=== PATIENT | male | born 1940 | race Caucasian/White ===

== ENCOUNTER 2017-02-24 13:31 | Inpatient (IN) ==
[2017-02-24] MEDS ORDERED: IPRATROPIUM/ALBUTEROL 3 ML AMPUL.NEB NEB ONE (13:53)
[2017-02-24] MEDS ORDERED: INSULIN REGULAR, HUMAN 1 UNIT/0.01 ML UNIT SQ ONE (14:11)
[2017-02-24 14:28] LABS: Basophils # (Auto) 0 K/mcL (0.0-0.3); Basophils % (Auto) 0.1 % (0.0-2.0); Eosinophils # (Auto) 0.2 K/mcL (0.0-0.7); Eosinophils % (Auto) 2.6 % (0.0-7.0); Granulocytes % (Auto) 84.1 % (38.0-78.0); Lymphocytes # (Auto) 0.9 K/mcL (1.5-4.8); Lymphocytes % (Auto) 9.8 % (15.5-49.0); Mean Cell Volume 99.2 fL (80.0-100.0); Mean Corpuscular Hemoglobin 32.7 pg (26.0-34.0); Monocytes # (Auto) 0.3 K/mcL (0.1-0.9); Monocytes % (Auto) 3.4 % (1.0-12.0); Platelet Count 209 K/mcL (140-440); RBC 3.96 M/mcL (4.50-5.90); Red Cell Distribution Width 17.1 % (11.5-14.5)
[2017-02-24] MEDS ORDERED: LIDOCAINE JEL 2% 1 TUBE 30GM TOPICAL ONE (14:30)
--- NOTE | 2017-02-24 14:33 | Emergency Department Note ---
SOB HPI - General Chief Complaint: Shortness of Breath/Dyspnea Stated Complaint: Shortness of breath Time Seen by Provider: 02/24/17 13:51 Source: family Mode of arrival: EMS Limitations: no limitations - History of Present Illness 69-year-old male presents with increasing shortness of breath over the last 3 weeks. Denies pedal edema. Positive chills and feels like he has had a fever but unknown. Does reside at [place]. States shortness of breath worse today. His blood sugars have also been high in all over the place he states. No cough, sore throat, ear pain, or cold symptoms. No abdominal pain. States the only pain he has are in his hands and feet which is chronic. He did 2 DuoNeb treatments prior to arrival without relief. He cannot get a breath and short of breath constantly. - Related Data Home Medications Medication Instructions Recorded Confirmed fish, borage, flaxseed oils-omega 1 cap PO TID cap 10/21/14 12/12/16 3,6,9 cb #1 400 mg-400 mg-400 mg cap magnesium oxide 400 mg tablet 400 mg PO BID tab 10/21/14 02/24/17 methotrexate sodium 2.5 mg tablet 15 mg PO QWEEK tab 10/21/14 02/24/17 triamcinolone acetonide 0.5 % 1 applic TOPICAL BID g 10/21/14 02/24/17 topical cream vitamin A-vitamin C-vit E-min 1 tab-cap PO BID tab 10/21/14 02/24/17 tablet diabetic syringes 1/2" 04/07/16 09/17/16 aspirin 81 mg tablet,delayed 81 mg PO QDAY 09/17/16 02/24/17 release Magnesium Hydroxide [Milk of 400 mg PO PRN PRN 02/24/17 02/24/17 Magnesia] Warfarin [Coumadin] 7.5 mg PO QDAY 02/24/17 02/24/17 Previous Rx's Medication Instructions Recorded gabapentin 400 mg capsule 1,200 mg PO TID #270 cap 01/11/15 Compression Socks #2 each 08/19/15 blood-glucose meter See Dose Instructions .ROUTE 10/18/15 .MEDSUPPLY #1 each TENS unit #1 each 11/05/15 linaclotide 290 mcg capsule 290 mcg PO BID #60 cap 11/05/15 phenazopyridine 200 mg tablet 200 mg PO TID PRN 30 Days #90 tab 11/05/15 allopurinol 300 mg tablet 300 mg PO QDAY #30 tab 02/18/16 digoxin 125 mcg tablet 125 mcg PO QDAY #30 tab 02/18/16 fenofibrate 160 mg tablet 160 mg PO QDAY #30 tab 02/18/16 finasteride 5 mg tablet 5 mg PO QDAY #30 tab 02/18/16 citalopram 20 mg tablet 20 mg PO QDAY #30 tab 02/24/16 tamsulosin 0.4 mg capsule 0.4 mg PO QDAY #30 cap 02/24/16 atorvastatin 10 mg tablet 10 mg PO QDAY #30 tab 03/02/16 blood sugar diagnostic strips See Dose Instructions .ROUTE 03/26/16 .MEDSUPPLY #100 each insulin glargine 100 unit/mL 52 unit SUB-Q BID 30 Days #31.2 ml 04/08/16 subcutaneous solution insulin lispro 100 unit/mL 20 unit SUB-Q .COMPLEX #10 ml 04/08/16 subcutaneous solution furosemide 40 mg tablet 40 mg PO .COMPLEX #60 tab 05/18/16 cholecalciferol (vitamin D3) 5,000 5,000 unit PO QDAY #100 cap 06/15/16 unit capsule omeprazole 20 mg capsule,delayed 20 mg PO QDAY #30 cap 06/26/16 release fluticasone 50 mcg/actuation 2 inh INHALATION .COMPLEX #16 each 08/28/16 blister powder for inhalation exenatide ER 2 mg/0.65 mL 2 mg SUB-Q Q7D #4 each 09/07/16 subcutaneous pen injector diltiazem ER 60 mg 60 mg PO QDAY #90 cap 09/18/16 capsule,extended release 12 hr nystatin 100,000 unit/gram topical 1 applic TOPICAL BID #60 each 10/14/16 powder alendronate 70 mg tablet 70 mg PO QWEEK #4 tab 10/26/16 fluticasone 50 mcg/actuation nasal See Label Instructions INTRANASAL 11/23/16 spray,suspension BID #16 g oxycodone 5 mg tablet 5 mg PO Q4H PRN #30 tab 02/15/17 Allergies Allergy/AdvReac Type Severity Reaction Status Date / Time Penicillins Allergy Intermediate Difficulty Verified 11/16/16 15:00 Breathing niacin Allergy Mild Unknown Verified 11/16/16 15:00 iodine Allergy Verified 02/24/17 15:00 Review of Systems All systems ED: reviewed and negative except as stated. Past Medical History - Past Medical History Medical history: Reports: arthritis, asthma, atrial fibrillation, CHF, coronary artery disease, CVA, DVT, diabetes, GERD, hyperlipidemia, hypertension, osteoporosis, pulmonary embolus, renal disease, other (Frequent urinary tract infections, atrial fibrillation, sepsis, community-acquired pneumonia, stage III kidney disease, CVA, sleep apnea, urethral stricture, cervical disc disorder. Phimosis, CHF, CAD, enlarged prostate, type 2 diabetes, vitamin D deficiency, anemia, gastroenteritis, neuropathy, cardiac stent, DVT, staph infection, skin cancer, pulmonary embolism, osteoarthritis, neuropathy, obesity , hypertension, gout, GERD, CKD, asthma, depression) Surgical history ED: Reports: angioplasty/stent, cholecystectomy, herniorrhaphy , prostatectomy, tonsillectomy, other (Adenoidectomy, prostate surgery, cholecystectomy, cystoscopy. Tonsillectomy, umbilical hernia repair, cardiac stent, left great toe surgery, right ankle surgery) - Social History smoking status: Former smoker Alcohol use: Reports: None Drug use: Reports: none Physical Exam - General Limitations: no limitations General appearance: alert, anxious (Mildly), in distress (Mild distress with a respiratory rate of 32 on arrival) - Head Head exam: atraumatic, normocephalic, normal inspection - Eye Eye exam: Present: normal appearance. Absent: conjunctival injection - ENT ENT exam: normal exam, normal oropharynx, mucous membranes moist, TM's normal bilaterally, normal external ear exam - Neck Neck exam: Present: normal inspection, trachea midline. Absent: tenderness, lymphadenopathy - Chest Chest inspection: Present: normal inspection, symmetric chest wall rise - Respiratory Respiratory exam: Present: respiratory distress (Tachypnea), other (Are diminished in bases bilaterally otherwise clear throughout). Absent: wheezes, accessory muscle use - Cardiovascular Cardiovascular exam: Present: normal heart sounds (Atrial fibrillation on the monitor) - Abdominal Exam Abdominal exam: Present: distention (Large distended abdomen), normal bowel sounds. Absent: tenderness, guarding, rebound, mass - Extremities Exam Extremities exam: Present: normal inspection, normal capillary refill. Absent: pedal edema - Neurological Exam Neurological exam: Present: alert, oriented X3 - Psychiatric Psychiatric exam: Present: normal affect, normal mood - Skin Skin exam: Present: warm, dry, intact, normal color. Absent: rash, cyanosis, diaphoresis, erythema Course Course Narrative: Dr. Cortez, hospitalist, agrees to admit and assume care. Vital Signs Temperature 99.3 F H 02/24/17 13:31 Pulse Rate 96 H 02/24/17 13:31 Respiratory Rate 33 H 02/24/17 13:31 Blood Pressure 120/58 02/24/17 13:31 Pulse Oximetry (%) 96 02/24/17 13:31 Temperature 99.3 F H 02/24/17 13:31 Pulse Rate 93 H 02/24/17 15:55 Respiratory Rate 27 H 02/24/17 15:55 Blood Pressure 107/84 02/24/17 15:46 Pulse Oximetry (%) 97 02/24/17 15:55 Shortness of Breath/Dyspnea - Lab Data Result diagrams: 02/24/17 14:04 02/24/17 14:04 Lab Results 02/24/17 02/24/17 02/24/17 Range/Units 14:04 14:04 14:04 WBC 9.5 (4.5-11.0) K/mcL RBC 3.96 L (4.50-5.90) M/mcL Hgb 13.0 L (13.5-16.5) g/dL Hct 39.3 L (41.0-55.0) % MCV 99.2 (80.0-100.0) fL MCH 32.7 (26.0-34.0) pg MCHC 33.0 (31.0-36.0) g/dL RDW 17.1 H (11.5-14.5) % Plt Count 209 (140-440) K/mcL MPV 9.8 (7.4-10.4) fL Gran % 84.1 H (38.0-78.0) % Lymph % (Auto) 9.8 L (15.5-49.0) % Cottle % (Auto) 3.4 (1.0-12.0) % Eos % (Auto) 2.6 (0.0-7.0) % Baso % (Auto) 0.1 (0.0-2.0) % Gran # 8.0 (1.8-8.0) K/mcL Lymph # (Auto) 0.9 L (1.5-4.8) K/mcL Cottle # (Auto) 0.3 (0.1-0.9) K/mcL Eos # (Auto) 0.2 (0.0-0.7) K/mcL Baso # (Auto) 0 (0.0-0.3) K/mcL D-Dimer 0.31 (0.00-0.40) ug/ml VBG Lactic Acid (0.5-2.2) mmol/L Sodium 135 (133-145) mmol/L Potassium 5.3 H (3.3-5.1) mmol/L Chloride 97 (96-108) mmol/L Carbon Dioxide 28 (22-30) mmol/L Anion Gap 10.0 (8-16) BUN 37 H (8-23) mg/dl Creatinine 1.5 H (0.7-1.2) mg/dl GFR Calculation 44 Glucose 479 H* (70-105) mg/dL Calcium 9.1 (8.6-10.4) mg/dl Total Bilirubin 0.3 (0.0-1.0) mg/dL AST 23 (0-37) U/l ALT 17 (0-40) U/l Alkaline Phosphatase 33 L (39-117) U/L Troponin T (0-0.03) ng/ml NT-Pro-B Natriuret Pep 1393.0 H (0-450) pg/ml Total Protein 6.7 (5.9-8.4) gm/dL Albumin 3.6 (3.2-5.2) gm/dL Globulin 3.1 (2.2-3.7) gm/dL Albumin/Globulin Ratio 1.2 (1.0-2.3) Urine Color Urine Appearance Urine pH (5.0-9.0) Ur Specific [place] (1.000-1.035) Urine Protein (NEG) mg/dL Urine Glucose (UA) (NEG) mg/dL Urine Ketones (NEG) mg/dL Urine Occult Blood (<0.03) mg/dL Urine Nitrate (NEG) Urine Bilirubin (NEG) mg/dL Urine Urobilinogen (NEG) mg/dL Ur Leukocyte Esterase (NEG) /uL Urine RBC (0-1) /hpf Urine WBC (0-4) /hpf Ur Squamous Epith Cells (0-4) /hpf Urine Bacteria (0) /hpf Hyaline Casts (0-2) /lpf Ur Culture Indicated? 02/24/17 02/24/17 02/24/17 Range/Units 14:04 14:48 15:11 WBC (4.5-11.0) K/mcL RBC (4.50-5.90) M/mcL Hgb (13.5-16.5) g/dL Hct (41.0-55.0) % MCV (80.0-100.0) fL MCH (26.0-34.0) pg MCHC (31.0-36.0) g/dL RDW (11.5-14.5) % Plt Count (140-440) K/mcL MPV (7.4-10.4) fL Gran % (38.0-78.0) % Lymph % (Auto) (15.5-49.0) % Cottle % (Auto) (1.0-12.0) % Eos % (Auto) (0.0-7.0) % Baso % (Auto) (0.0-2.0) % Gran # (1.8-8.0) K/mcL Lymph # (Auto) (1.5-4.8) K/mcL Cottle # (Auto) (0.1-0.9) K/mcL Eos # (Auto) (0.0-0.7) K/mcL Baso # (Auto) (0.0-0.3) K/mcL D-Dimer (0.00-0.40) ug/ml VBG Lactic Acid 2.6 H (0.5-2.2) mmol/L Sodium (133-145) mmol/L Potassium (3.3-5.1) mmol/L Chloride (96-108) mmol/L Carbon Dioxide (22-30) mmol/L Anion Gap (8-16) BUN (8-23) mg/dl Creatinine (0.7-1.2) mg/dl GFR Calculation Glucose (70-105) mg/dL Calcium (8.6-10.4) mg/dl Total Bilirubin (0.0-1.0) mg/dL AST (0-37) U/l ALT (0-40) U/l Alkaline Phosphatase (39-117) U/L Troponin T 0.06 H* (0-0.03) ng/ml NT-Pro-B Natriuret Pep (0-450) pg/ml Total Protein (5.9-8.4) gm/dL Albumin (3.2-5.2) gm/dL Globulin (2.2-3.7) gm/dL Albumin/Globulin Ratio (1.0-2.3) Urine Color Yellow Urine Appearance Clear Urine pH 5.0 (5.0-9.0) Ur Specific [place] 1.013 (1.000-1.035) Urine Protein Neg (NEG) mg/dL Urine Glucose (UA) >=500 A (NEG) mg/dL Urine Ketones Neg (NEG) mg/dL Urine Occult Blood Neg (<0.03) mg/dL Urine Nitrate Neg (NEG) Urine Bilirubin Neg (NEG) mg/dL Urine Urobilinogen Neg (NEG) mg/dL Ur Leukocyte Esterase 25 A (NEG) /uL Urine RBC 1 (0-1) /hpf Urine WBC 3 (0-4) /hpf Ur Squamous Epith Cells 1 (0-4) /hpf Urine Bacteria 0 (0) /hpf Hyaline Casts 8 H (0-2) /lpf Ur Culture Indicated? No Disposition Pt seen by NIGHT ASSISTANT/PA only: Yes Clinical Impression: CHF (congestive heart failure), Dyspnea, Hyperglycemia, unspecified Disposition: Xfer As Inpt ([facility]) Instructions: Heart Failure (ED) Referrals: Curly Middleton MD [Primary Care Provider] -
--- NOTE | 2017-02-24 14:48 | XRay Report ---
CLINICAL INFORMATION: Dyspnea COMPARISON: 12/13/2016 FINDINGS: The heart is mildly enlarged but accentuated by suboptimal inspiration result, portable technique and rightward rotation. Mediastinum is normal. Upper lobe pulmonary vessels are slightly distended. Minor bibasilar atelectasis noted. No definite effusion IMPRESSION: Mild CHF. Interpreted and Authenticated by: David Alfred 02/24/17
[2017-02-24 14:53] LABS: ALT/SGPT 17 U/l (0-40); Albumin 3.6 gm/dL (3.2-5.2); Albumin/Globulin Ratio 1.2 (1.0-2.3); Alkaline Phosphatase 33 U/L (39-117); Blood Urea Nitrogen 37 mg/dl (8-23)
[2017-02-24] MEDS ORDERED: FUROSEMIDE 20 MG/2 ML VIAL IV ONE (14:53)
[2017-02-24 15:38] LABS: Appearance,Urine CLEAR; Bacteria,Urine 0 /hpf (0); Bilirubin,Urine NEG (NEG); Color,Urine YELLOW; Glucose,Urine (UA) >=500 mg/dL (NEG); Leukocyte Esterase,Urine 25 /uL (NEG); Nitrate,Urine NEG (NEG); Protein,Urine NEG (NEG); Specific Gravity,Urine 1.013 (1.000-1.035); Urine Blood NEG mg/dL (<0.03); Urine Hyaline Cast 8 /lpf (0-2); Urine RBC 1 /hpf (0-1); Urine Squamous Epithelial Cell 1 /hpf (0-4); Urine WBC 3 /hpf (0-4); Urobilinogen,Urine NEG (NEG)
[2017-02-24] MEDS ORDERED: ACETAMINOPHEN 325 MG TABLET PO PRN (17:14)
[2017-02-24] MEDS ORDERED: ONDANSETRON 4 MG/2 ML VIAL IV PRN (17:14)
[2017-02-24] MEDS ORDERED: ALBUTEROL SULFATE 2.5 MG/3 ML NEBULIZER NEB PRN (17:14)
--- NOTE | 2017-02-24 17:20 | Internal Med History&Physical ---
Medical - H&P: HPI Patient information: Note initiated : 02/24/17 at 5:15 pm Service Date, if different from initiated Date: [] Patient: Jay Allen a 77 y/o M admitted on 02/24/17 for Shortness of breath. Chief Complaint: Short of breath History of present illness: Mr. Allen is a 77-year-old male with multiple medical problems including sometimes difficult to control type 2 diabetes mellitus, recent chronic hypoxic respiratory failure on oxygen, rate controlled atrial fibrillation, diastolic congestive heart failure, coronary artery disease and chronic kidney disease who presents with dyspnea and hypoxia. History is obtained in speaking with the patient who provide some limited history, his who is at bedside, as well as reviewing old records, as summarized below. Patient states he has been short of breath for "a while". The emergency department received a history of dyspnea for the last 3 weeks. His states that he's been short of breath and on oxygen constantly since he had pneumonia back in December. He was seen in this emergency department, diagnosed with sepsis from pneumonia and transferred to [facility]. He was apparently readmitted at [facility] since then. He's been on oxygen at [facility], where he's currently living since he's been hospitalized. He is brought to the emergency department today because he was having progressive dyspnea as well as oxygen saturations in the 70's recorded at [facility] while he was on his usual oxygen. Associated with his dyspnea, the patient's noted worsening lower extremity edema. His weight was 270, and spent 250-260 in the past. The cough with some foamy sputum, also some greenish and yellow sputum. He is occasionally had mid chest pain, it happens occasionally, not particularly associated with any exertion, last for a day or 2. It is not a pressure or squeezing pain it is a "hurt". It is not stabbing either. It does not radiate. He had some of this yesterday. He is having none now. He's had no dyspnea with deep respirations. He does have a history of pulmonary embolism, but is maintained on warfarin for his atrial fibrillation. His lower extremity swelling is not unilateral. Patient denies any headache, vision changes. He does have burning in his hands and feet which is unchanged in due to neuropathy. He has urinary hesitancy which is not new. He also has constipation. Apparently he used to be on fairly high doses of opioids for chronic pain, was weaned off. In the emergency department evaluation revealed elevated BNP at 1395, mild congestive heart failure on radiograph. On my exam he has bilateral rales plus lower extremity edema consistent with CHF. His been admitted for treatment of acute on chronic diastolic congestive heart failure. Review of systems: Except as noted in history of present illness, the remainder of a 10 point review of systems is negative Medical - H&P: H Medical history: Type 2 diabetes mellitus Diabetic neuropathy Coronary artery disease with CT, status post stenting in 2001 in 2002 Chronic kidney disease Hypertension Chronic hypoxic respiratory failure Atrial fibrillation Chronic diastolic congestive heart failure Asthma/COPD Hyperlipidemia History of pulmonary embolism, treated and [facility] Ira several years ago Gastroesophageal reflux disease Hyperlipidemia History of left lower lobe pneumonia December 2016 BPH with urinary obstruction Depression Gout Morbid obesity, BMI 41 Obstructive sleep apnea Surgical history: Status post cholecystectomy Status post herniorrhaphy Status post tonsillectomy Status post TURP Social history: Has been a resident of [facility] since his hospitalizations for pneumonia. Is a former smoker, smoked for about 5 years in total, quitting several years ago. No longer drinks alcohol. Medical - H&P: Meds Home Medications Medication Instructions Recorded Confirmed Type magnesium oxide 400 mg tablet 400 mg PO BID tab 10/21/14 02/24/17 History methotrexate sodium 2.5 mg tablet 15 mg PO MO@0900 tab 10/21/14 02/24/17 History triamcinolone acetonide 0.5 % 1 applic TOPICAL BID g 10/21/14 02/24/17 History topical cream vitamin A-vitamin C-vit E-min 1 tab-cap PO BID tab 10/21/14 02/24/17 History tablet allopurinol 300 mg tablet 300 mg PO QDAY #30 tab 02/18/16 02/24/17 Rx fenofibrate 160 mg tablet 160 mg PO QDAY #30 tab 02/18/16 02/24/17 Rx cholecalciferol (vitamin D3) 5,000 5,000 unit PO QDAY #100 cap 06/15/16 Rx unit capsule aspirin 81 mg tablet,delayed 81 mg PO QDAY 09/17/16 02/24/17 History release nystatin 100,000 unit/gram topical 1 applic TOPICAL BID #60 each 10/14/16 Rx powder Alendronate Sodium [Fosamax] 70 mg PO SA@0700 02/24/17 02/24/17 History Atorvastatin [Lipitor] 10 mg PO HS 02/24/17 02/24/17 History Budesonide [Pulmicort] 0.5 mg NEB Q12 02/24/17 02/24/17 History Citalopram Hydrobromide [Celexa] 40 mg PO DAILY 02/24/17 02/24/17 History Digoxin [Digitek] 125 mcg PO DAILY@1400 02/24/17 02/24/17 History Diltiazem [Cardizem] 60 mg PO BID 02/24/17 02/24/17 History Furosemide [Lasix] 40 mg PO BIDD 02/24/17 02/24/17 History Gabapentin [Neurontin] 400 mg PO TID 02/24/17 02/24/17 History Hydrocortisone [Anusol-Hc] 30 gm TP BIDP PRN 02/24/17 02/24/17 History Ipratropium/Albuterol [Duoneb] 3 ml NEB Q4HWA 02/24/17 02/24/17 History Iron Ps Cmplx/Vit B12/FA 1 each PO DAILY 02/24/17 02/24/17 History [Poly-Iron 150 Forte Capsule] Linaclotide [Linzess] 290 mcg PO ACB 02/24/17 02/24/17 History Losartan [Cozaar] 25 mg PO DAILY 02/24/17 02/24/17 History Melatonin 3 - 6 mg PO HSP PRN 02/24/17 02/24/17 History Omeprazole [Prilosec] 20 mg PO ACB 02/24/17 02/24/17 History Polyethylene Glycol 3350 [Miralax] 17 gm PO BID 02/24/17 02/24/17 History Tamsulosin HCl [Flomax] 0.4 mg PO HS 02/24/17 02/24/17 History Warfarin [Coumadin] 5 mg PO SUTUTHFRSA@1400 02/24/17 02/24/17 History Warfarin [Coumadin] 10 mg PO MOWE@1400 02/24/17 02/24/17 History oxyCODONE HCL [Roxicodone] 5 mg PO Q4HP PRN 02/24/17 02/24/17 History Allergies Allergy/AdvReac Type Severity Reaction Status Date / Time Penicillins Allergy Intermediate Difficulty Verified 11/16/16 15:00 Breathing niacin Allergy Mild Unknown Verified 11/16/16 15:00 iodine Allergy Verified 02/24/17 15:00 Medical - H&P: Exam - Constitutional Vitals: Temp Pulse Resp BP Pulse Ox 99.3 F H 92 H 24 H 117/63 97 02/24/17 13:31 02/24/17 16:33 02/24/17 16:01 02/24/17 16:32 02/24/17 16:33 General appearance: mild distress, morbidly obese - Head Head exam: Present: atraumatic - Eye Eye exam: Present: PERRL. Absent: conjunctival injection, scleral icterus - Neck Neck exam: Absent: lymphadenopathy, meningismus, thyromegaly - Respiratory Respiratory exam: Present: rales (LLL>RLL). Absent: accessory muscle use, stridor, wheezes - Cardiovascular Cardiovascular exam: Present: irregular rhythm, systolic murmur. Absent: gallop - Expanded Cardiovascular Exam Peripheral pulses: 1+: dorsalis pedis (L), dorsalis pedis (R), 2+: carotid (L), carotid (R) - GI/Abdominal GI/Abdominal exam: Present: normal bowel sounds, soft. Absent: organomegaly ( though exam limited by obesity), rebound, tenderness - Extremities Exam Extremities exam: Present: pedal edema (1+ bilateral). Absent: calf tenderness , joint swelling - Neurological Exam Neurological exam: Present: alert (but answers short and vauge), CN II-XII intact, oriented X3 - Skin Skin exam: Present: dry, warm Medical - H&P: Reslt - Labs CBC & Chem 7: 02/24/17 14:04 02/24/17 14:04 Labs: Short CBC 02/24/17 Range/Units 14:04 WBC 9.5 (4.5-11.0) K/mcL Hgb 13.0 L (13.5-16.5) g/dL Hct 39.3 L (41.0-55.0) % Plt Count 209 (140-440) K/mcL BMP 02/24/17 14:04 Sodium 135 Potassium 5.3 H Chloride 97 Carbon Dioxide 28 BUN 37 H Creatinine 1.5 H Glucose 479 H* Calcium 9.1 Cardiac Enzymes 02/24/17 Range/Units 14:04 Troponin T 0.06 H* (0-0.03) ng/ml Liver Function 02/24/17 Range/Units 14:04 Total Bilirubin 0.3 (0.0-1.0) mg/dL AST 23 (0-37) U/l ALT 17 (0-40) U/l Alkaline Phosphatase 33 L (39-117) U/L Albumin 3.6 (3.2-5.2) gm/dL Urine 02/24/17 Range/Units 15:11 Urine Color Yellow Urine Appearance Clear Urine pH 5.0 (5.0-9.0) Ur Specific [place] 1.013 (1.000-1.035) Urine Protein Neg (NEG) mg/dL Urine Glucose (UA) >=500 A (NEG) mg/dL - EKG Data -: EKG Reviewed by Myself - Imaging and Cardiology Chest x-ray Status: image reviewed by me Additional comments: Impression: Mild CHF Medical - H&P: A/P (1) Acute on chronic diastolic congestive heart failure Current visit: Yes Status: Acute (2) Type 2 diabetes mellitus with diabetic neuropathy Current visit: Yes Status: Chronic (3) CKD (chronic kidney disease), stage III Current visit: Yes Status: Chronic (4) CAD (coronary artery disease) Current visit: Yes Status: Chronic (5) A-fib Problem details: With leaky valve Current visit: Yes Status: Chronic - Narrative A/P Narrative: 77-year-old male presenting with several days to weeks of worsening dyspnea, decreasing oxygen saturations, lower extremity edema, found to have evidence of heart failure. Acute on chronic diastolic congestive heart failure. Last echocardiogram in July showed concentric LVH which was mild with grossly normal systolic performance and an EF of approximately 55% though it was a difficult study. Also had some aortic stenosis, thought to be mild. Unclear the etiology of his decompensation though it's been slow and progressive, and he may have become refractory to diuretics as fluid retention worsened. Troponin is 0.06, suspect that's more related to heart failure decompensation and less suspicious of acute coronary syndrome as a cause of his decompensation. Plan: -Inpatient admission to telemetry -Diuresis with twice-daily furosemide -Follow intake, output, daily weights. -Low sodium diet -Recheck echocardiogram Abnormal troponin. Level is 0.06 at presentation. No old readings in the record. Could be acute, secondary to decompensated heart failure and wall stress. Also has renal insufficiency, may have artificial elevation due to that. No current chest pain. He does have some inferior T-wave changes, but no ST elevations. He does have remote history of coronary disease with stenting in 2001 and 2002. Plan: Trend troponins, continue his home antianginal regimen. If troponins increase, we will need to pursue transfer for cardiac evaluation. Atrial fibrillation. Chronic and rate controlled. On warfarin for stroke prophylaxis. Plan: Continue with current regimen, including warfarin. Type 2 diabetes mellitus. Hyperglycemia presentation, likely from decompensation of his medical condition. Suspect he may have underlying urinary infection as well. Plan: Continue with his home Lantus, diabetic diet, sliding scale insulin, adjust as needed. Chronic hypoxic respiratory failure. On oxygen chronically at home, his thinks his 2 L/m. Plan: Continue supplemental oxygen as needed, titrate to maintain saturations greater than 92%. Abnormal urine analysis. Leukocyte esterase is positive, 3 white cells but no bacteria. Given his low-grade fever, we'll begin antibiotic therapy and follow- up culture. Plan: Ceftriaxone, follow-up urine culture Chronic kidney disease. Creatinine was 1.11.2 over the summer. More recently has been in the 1.31.4 range. Only slightly elevated 1.5 at presentation, could be secondary to his decompensated heart failure. Plan: Monitor renal function with diuresis. Gastroesophageal reflux disease. Plan: Continue acid suppression for that and prophylaxis CODE STATUS is full code Prophylaxis: PPI. No further DVT prophylaxis indicated as the patient is systemically anticoagulated for atrial fibrillation.
[2017-02-24] MEDS ORDERED: oxyCODONE HCL 5 MG TABLET PO PRN (18:25)
[2017-02-24] MEDS: POLYETHYLENE GLYCOL 3350 17 GM PACKET PO SCH (21:00)
[2017-02-24] MEDS: DILTIAZEM 30 MG TABLET PO SCH (21:54)
[2017-02-24] MEDS: GABAPENTIN 400 MG CAPSULE PO SCH (21:54)
[2017-02-24] MEDS: VIT A,C & E/LUTEIN/MINERALS TABLET PO SCH (21:54)
[2017-02-24] MEDS: ATORVASTATIN 20 MG TABLET PO SCH (21:54)
[2017-02-24] MEDS: MAGNESIUM OXIDE 400 MG TABLET PO SCH (21:54)
[2017-02-24] MEDS: TAMSULOSIN 0.4 MG CAPSULE PO SCH (21:54)
[2017-02-24] MEDS: INSULIN GLARGINE, HUMAN 1 UNIT/0.01 ML SQ SCH (21:55)
[2017-02-24] MEDS: INSULIN LISPRO 1 UNIT/0.01 ML UNIT SQ SCH (21:55)
[2017-02-24] MEDS: NYSTATIN POWDER BOTTLE 15GM TOPICAL SCH (21:56)
[2017-02-24] MEDS: IPRATROPIUM/ALBUTEROL 3 ML AMPUL.NEB NEB SCH (21:58)
[2017-02-24] MEDS: BUDESONIDE 0.5 MG/2 ML AMPUL.NEB NEB SCH (21:58)
[2017-02-24] MEDS: 0.9 % SODIUM CHLORIDE 10 ML SYRINGE IV SCH (21:59)
[2017-02-25 05:20] LABS: ALT/SGPT 17 U/l (0-40); Albumin 3.5 gm/dL (3.2-5.2); Albumin/Globulin Ratio 1.2 (1.0-2.3); Alkaline Phosphatase 29 U/L (39-117); Bilirubin,Direct < 0.2 mg/dL (0.0-0.3); Blood Urea Nitrogen 31 mg/dl (8-23); Gamma Glutamyl Transpeptidase 24 U/L (8-61); HDL Cholesterol 21 mg/dl (>40); LDL Cholesterol,Calculated 87 mg/dl (SEE CHART); Magnesium 2.1 mg/dL (1.6-2.5); Uric Acid 5.9 mg/dL (2.5-8.0)
[2017-02-25] MEDS: 0.9 % SODIUM CHLORIDE 10 ML SYRINGE IV SCH ×4 (05:30→21:18)
[2017-02-25] MEDS: IPRATROPIUM/ALBUTEROL 3 ML AMPUL.NEB NEB SCH ×5 (05:30→22:18)
[2017-02-25] MEDS: OMEPRAZOLE 20 MG CAPSULE PO SCH (08:00)
[2017-02-25] MEDS: INSULIN LISPRO 1 UNIT/0.01 ML UNIT SQ SCH ×4 (08:01→21:17)
[2017-02-25] MEDS: BUDESONIDE 0.5 MG/2 ML AMPUL.NEB NEB SCH ×2 (08:06→20:18)
[2017-02-25] MEDS: FUROSEMIDE 40 MG/4 ML VIAL IV SCH ×2 (08:55→16:05)
[2017-02-25] MEDS: ASPIRIN 81 MG TAB.CHEW PO SCH (09:13)
[2017-02-25] MEDS: LOSARTAN 25 MG TABLET PO SCH (09:13)
[2017-02-25] MEDS: DILTIAZEM 30 MG TABLET PO SCH ×2 (09:14→21:17)
[2017-02-25] MEDS: CITALOPRAM 20 MG TABLET PO SCH (09:14)
[2017-02-25] MEDS: VIT A,C & E/LUTEIN/MINERALS TABLET PO SCH ×2 (09:15→21:18)
[2017-02-25] MEDS: MAGNESIUM OXIDE 400 MG TABLET PO SCH ×2 (09:15→21:18)
[2017-02-25] MEDS: GABAPENTIN 400 MG CAPSULE PO SCH ×3 (09:15→21:17)
[2017-02-25] MEDS: ALLOPURINOL 300 MG TABLET PO SCH (09:19)
[2017-02-25] MEDS: NYSTATIN POWDER BOTTLE 15GM TOPICAL SCH ×2 (09:19→21:18)
[2017-02-25] MEDS: FENOFIBRATE 43 MG CAPSULE PO SCH (09:20)
[2017-02-25] MEDS: POLYETHYLENE GLYCOL 3350 17 GM PACKET PO SCH ×2 (09:20→21:18)
--- NOTE | 2017-02-25 10:47 | Internal Med Progress Note ---
Medical - PN: Subj Patient information: Note initiated : 02/25/17 at 10:41 am Service Date, if different from initiated Date: [] Patient: Jay Allen 77 y/o M admitted on 02/24/17 for Shortness of breath. Chief Complaint: Follow-up CHF Interval history: February 25: Feels better this morning. More lucid. Vaguely remembers talking to me in the ER yesterday. Dyspnea is improved, less edema, lung exam improved. Doesn't recall our discussion of this being congestive heart failure that we had yesterday. No substernal chest pain. Does have some left shoulder pain that started this morning, worse with movement of his left arm (tends to lay on right side with left arm extended and dangling over edge of bed). Having loose stools, on significant amounts of bowel care which is being compared back. - Constitutional Vitals: Vital Signs Temp Pulse Resp BP Pulse Ox 98.0 F 88 18 121/40 96 02/25/17 07:13 02/25/17 09:02 02/25/17 09:02 02/25/17 07:13 02/25/17 09:02 Period Temp Pulse Resp BP Sys/Jimenez Pulse Ox Last 24 Hr 98.0 F-99.3 F 74-174 18-33 55-174/27-101 93-100 Intake and Output 02/24/17 02/25/17 02/25/17 21:59 05:59 13:59 Intake Total 400 / 400 Output Total 1850 / 1850 2175 / 2175 Balance -1850 / -1850 -2175 / -2175 400 / 400 Weight 265 lb Intake & Output: Intake & Output 02/24/17 02/25/17 02/25/17 21:59 05:59 13:59 Intake Total 400 / 400 Output Total 1850 / 1850 2175 / 2175 Balance -1850 / -1850 -2175 / -2175 400 / 400 Weight 265 lb Intake: Oral 400 / 400 Output: Urine Catheter Amount 925 / 925 2175 / 2175 Void Amount 925 / 925 Uretheral (Moore) 925 / 925 Other: Meal Breakfast Percent of Meal Consumed 100% Feeding Ability Assist with Tray Set Up # Bowel Movements 4 1 General appearance: morbidly obese, no acute distress - Respiratory Respiratory exam: Present: normal respiratory exam, CTAB. Absent: rales, respiratory distress, wheezes - Cardiovascular Cardiovascular exam: Present: irregular rhythm, systolic murmur - Expanded Cardiovascular Exam Type of murmur: Present: systolic Location: Present: LUSB Intensity: 1/6 - GI/Abdominal GI/Abdominal exam: Present: normal bowel sounds, soft (obese). Absent: rebound , rigid, tenderness - Extremities Exam Extremities exam: Present: pedal edema (1+), neurovascular intact. Absent: calf tenderness - Neurological Exam Neurological exam: Present: alert, oriented X3 Additional comments: generalized weakness - Psychiatric Psychiatric exam: Present: normal affect, normal mood Medical - PN: Obj Da - Labs CBC & Chem 7: 02/24/17 14:04 02/25/17 03:50 Labs: Abnormal Lab Results 02/25/17 02/25/17 02/25/17 03:50 03:50 03:50 RBC Hgb Hct RDW Gran % Lymph % (Auto) Lymph # (Auto) PT 44.2 H INR 4.4 H VBG Lactic Acid Potassium Carbon Dioxide 33 H BUN 31 H Creatinine 1.3 H Glucose 154 H Alkaline Phosphatase 29 L Troponin T 0.09 H* NT-Pro-B Natriuret Pep Triglycerides 198 H HDL Cholesterol 21 L Urine Glucose (UA) Ur Leukocyte Esterase Hyaline Casts 02/24/17 02/24/17 02/24/17 23:03 17:30 15:11 RBC Hgb Hct RDW Gran % Lymph % (Auto) Lymph # (Auto) PT INR VBG Lactic Acid Potassium Carbon Dioxide BUN Creatinine Glucose Alkaline Phosphatase Troponin T 0.07 H* 0.06 H* NT-Pro-B Natriuret Pep Triglycerides HDL Cholesterol Urine Glucose (UA) >=500 A Ur Leukocyte Esterase 25 A Hyaline Casts 8 H 02/24/17 02/24/17 02/24/17 14:48 14:04 14:04 RBC Hgb Hct RDW Gran % Lymph % (Auto) Lymph # (Auto) PT 47.2 H INR 4.8 H VBG Lactic Acid 2.6 H Potassium Carbon Dioxide BUN Creatinine Glucose Alkaline Phosphatase Troponin T 0.06 H* NT-Pro-B Natriuret Pep Triglycerides HDL Cholesterol Urine Glucose (UA) Ur Leukocyte Esterase Hyaline Casts 02/24/17 02/24/17 14:04 14:04 RBC 3.96 L Hgb 13.0 L Hct 39.3 L RDW 17.1 H Gran % 84.1 H Lymph % (Auto) 9.8 L Lymph # (Auto) 0.9 L PT INR VBG Lactic Acid Potassium 5.3 H Carbon Dioxide BUN 37 H Creatinine 1.5 H Glucose 479 H* Alkaline Phosphatase 33 L Troponin T NT-Pro-B Natriuret Pep 1393.0 H Triglycerides HDL Cholesterol Urine Glucose (UA) Ur Leukocyte Esterase Hyaline Casts Meds: Medications Acetaminophen (Tylenol) 650 mg PO Q6HP PRN PRN Reason: PAIN/FEVER > 101 Albuterol Sulfate (Ventolin) 2.5 mg NEB Q4HP PRN PRN Reason: Shortness Of Breath Or Wheezing Albuterol/Ipratropium (Duoneb) 3 ml NEB Q4HWA [facility] Last Admin: 02/25/17 08:06 Dose: 3 ml Allopurinol (Zylopriim) 300 mg PO QDAY [facility] Last Admin: 02/25/17 09:19 Dose: 300 mg Aspirin (Aspirin) 81 mg PO DAILY [facility] Last Admin: 02/25/17 09:13 Dose: 81 mg Atorvastatin Calcium (Lipitor) 10 mg PO HS [facility] Last Admin: 02/24/17 21:54 Dose: 10 mg Budesonide (Pulmicort) 0.5 mg NEB Q12 [facility] Last Admin: 02/25/17 08:06 Dose: 0.5 mg Citalopram Hydrobromide (Celexa) 40 mg PO DAILY [facility] Last Admin: 02/25/17 09:14 Dose: 40 mg Diagnostic Test (Pha) (Accu-Chek) 1 each FS ACHS [facility] Last Admin: 02/25/17 08:00 Dose: 1 each Digoxin (Lanoxin) 125 mcg PO DAILY@1400 [facility] Diltiazem HCl (Cardizem) 60 mg PO BID [facility] Last Admin: 02/25/17 09:14 Dose: 60 mg Fenofibrate (Antara) 129 mg PO DAILY [facility] Last Admin: 02/25/17 09:20 Dose: 129 mg Furosemide (Lasix) 40 mg IV BIDD [facility] Last Admin: 02/25/17 08:55 Dose: 40 mg Gabapentin (Neurontin) 400 mg PO TID [facility] Last Admin: 02/25/17 09:15 Dose: 400 mg Insulin Glargine (Lantus) 30 unit SQ HS [facility] Last Admin: 02/24/17 21:55 Dose: 30 unit Insulin Human Lispro (Humalog) 0 unit SQ ACHS [facility] PRN Reason: Protocol Last Admin: 02/25/17 08:01 Dose: 6 unit Losartan Potassium (Cozaar) 25 mg PO DAILY [facility] Last Admin: 02/25/17 09:13 Dose: 25 mg Magnesium Oxide (Magnesium Oxide) 400 mg PO BID [facility] Last Admin: 02/25/17 09:15 Dose: 400 mg Multivitamins/Minerals (Ocuvite) 1 tab PO BID [facility] Last Admin: 02/25/17 09:15 Dose: 1 tab Melatonin 3 Mg 3 - 6 mg PO HSP PRN PRN Reason: Insomnia Nystatin (Nystatin) 1 dose TOPICAL BID [facility] Last Admin: 02/25/17 09:19 Dose: 1 dose Omeprazole (Prilosec) 20 mg PO ACB [facility] Last Admin: 02/25/17 08:00 Dose: 20 mg Ondansetron HCl (Zofran) 4 mg IV Q4HP PRN PRN Reason: Nausea And Vomiting Oxycodone HCl (Roxicodone) 5 mg PO Q4HP PRN PRN Reason: Pain Polyethylene Glycol (Miralax) 17 gm PO BID [facility] Last Admin: 02/25/17 09:20 Dose: Not Given Sodium Chloride (Saline Flush) 10 ml IV Q8 [facility] Last Admin: 02/25/17 07:30 Dose: 10 ml Tamsulosin HCl (Flomax) 0.4 mg PO [facility] Last Admin: 02/24/17 21:54 Dose: 0.4 mg Medical - PN: A/P - Time Spent With Patient Total time spent is greater than 50% in coordination of care (as documented) at patient's floor/unit and/or counseling patient: (1) Acute on chronic diastolic congestive heart failure Status: Acute Current Visit: Yes (2) Type 2 diabetes mellitus with diabetic neuropathy Status: Chronic Current Visit: Yes (3) CKD (chronic kidney disease), stage III Status: Chronic Current Visit: Yes (4) CAD (coronary artery disease) Status: Chronic Current Visit: Yes (5) A-fib Problem details: With leaky valve Status: Chronic Current Visit: Yes - Narrative A/P Narrative: 77-year-old male presenting with several days to weeks of worsening dyspnea, decreasing oxygen saturations, lower extremity edema, found to have evidence of heart failure. Acute on chronic diastolic congestive heart failure. He had an echocardiogram done at [facility] in December, by report shows an EF of 65%, that's been faxed over. Last echo report available in our system shows mild concentric LVH. Also had some aortic stenosis, thought to be mild. Suspect etiology may be multifactorial, diet at his skilled facility, progressive weight gain and ultimate refractoriness of diuretics. Plan: Continue with diuresis, on twice a day furosemide, follow intake, output , daily weights; continue low sodium diet, follow-up echo report from 12/2016 Abnormal troponin. Level is 0.06 at presentation, repeat 0.06 and 0.09. No substernal chest symptoms. No acute injury pattern on EKG. Is complaining of some left shoulder pain, that appears mechanicals worsens with movement of the shoulder. May be secondary to wall stress from acute decompensated heart failure combined with renal insufficiency. EKG without injury, some inferior TW changes from digitalis effect. Plan: Continue to trend troponins, continue his home antianginal regimen. Atrial fibrillation. Chronic and rate controlled. On warfarin for stroke prophylaxis. INR high at presentation/coagulopathy from warfarin (4.8) Plan: Continue with current regimen, digoxin, diltiazem and warfarin, with pharmacy to dose, follow INR. Type 2 diabetes mellitus. Hyperglycemia at presentation, likely from decompensation of his medical condition. Suspect he may have underlying urinary infection as well. Glucoses improved. Plan: Continue with his home Lantus, diabetic diet, sliding scale insulin, adjust as needed. Chronic hypoxic respiratory failure. On oxygen chronically at home, his thinks his 2 L/m. Plan: Continue supplemental oxygen as needed, titrate to maintain saturations greater than 92%. Abnormal urine analysis. Leukocyte esterase is positive, 3 white cells but no bacteria. Given his low-grade fever, we'll begin antibiotic therapy and follow- up culture. Plan: Ceftriaxone, follow-up urine culture Chronic kidney disease. Creatinine was 1.1-1.2 over the summer. More recently has been in the 1.3-1.4 range. Only slightly elevated 1.5 at presentation, could be secondary to his decompensated heart failure. Plan: Monitor renal function with diuresis. Gastroesophageal reflux disease. Plan: Continue acid suppression for that and prophylaxis Disposition: The patient had been at [facility] after hospitalization for sepsis and pneumonia in December at [facility]. Likely will return to [facility]. PT consult. CODE STATUS is full code Prophylaxis: PPI. No further DVT prophylaxis indicated as the patient is systemically anticoagulated for atrial fibrillation. Medical - PN: Qual - VTE Deep Vein Thrombosis/Pulmonary Embolism Present on Admission: No
[2017-02-25] MEDS: DIGOXIN 125 MCG TABLET PO SCH (13:36)
[2017-02-25] MEDS: TAMSULOSIN 0.4 MG CAPSULE PO SCH (21:17)
[2017-02-25] MEDS: INSULIN GLARGINE, HUMAN 1 UNIT/0.01 ML SQ SCH (21:17)
[2017-02-25] MEDS: ATORVASTATIN 20 MG TABLET PO SCH (21:18)
[2017-02-26] MEDS: IPRATROPIUM/ALBUTEROL 3 ML AMPUL.NEB NEB SCH ×5 (05:18→21:29)
[2017-02-26 05:20] LABS: Basophils # (Auto) 0 K/mcL (0.0-0.3); Basophils % (Auto) 0.2 % (0.0-2.0); Eosinophils # (Auto) 0.4 K/mcL (0.0-0.7); Eosinophils % (Auto) 3.7 % (0.0-7.0); Granulocytes % (Auto) 81.4 % (38.0-78.0); Lymphocytes # (Auto) 1.3 K/mcL (1.5-4.8); Lymphocytes % (Auto) 10.9 % (15.5-49.0); Mean Cell Volume 99.4 fL (80.0-100.0); Mean Corpuscular HGB Conc 32.7 g/dL (31.0-36.0); Mean Corpuscular Hemoglobin 32.5 pg (26.0-34.0); Monocytes # (Auto) 0.4 K/mcL (0.1-0.9); Monocytes % (Auto) 3.8 % (1.0-12.0); Platelet Count 214 K/mcL (140-440); RBC 3.99 M/mcL (4.50-5.90); Red Cell Distribution Width 16.9 % (11.5-14.5)
[2017-02-26] MEDS: 0.9 % SODIUM CHLORIDE 10 ML SYRINGE IV SCH ×6 (05:25→21:28)
[2017-02-26 05:46] LABS: ALT/SGPT 19 U/l (0-40); Albumin 3.5 gm/dL (3.2-5.2); Albumin/Globulin Ratio 1.1 (1.0-2.3); Alkaline Phosphatase 33 U/L (39-117); Bilirubin,Direct < 0.2 mg/dL (0.0-0.3); Blood Urea Nitrogen 33 mg/dl (8-23); Gamma Glutamyl Transpeptidase 25 U/L (8-61); Uric Acid 5.8 mg/dL (2.5-8.0)
[2017-02-26] MEDS: FUROSEMIDE 40 MG/4 ML VIAL IV SCH (07:46)
[2017-02-26] MEDS: OMEPRAZOLE 20 MG CAPSULE PO SCH (07:46)
[2017-02-26] MEDS: INSULIN LISPRO 1 UNIT/0.01 ML UNIT SQ SCH ×5 (08:03→21:39)
--- NOTE | 2017-02-26 09:06 | XRay Report ---
CLINICAL INFORMATION: CHF COMPARISON: 02/24/2017 FINDINGS: The heart returned to normal in size. Mediastinum is unremarkable. Pulmonary vessels have returned to normal in caliber. There is no edema. Minor bibasilar atelectasis noted IMPRESSION: Resolution in CHF since yesterday Interpreted and Authenticated by: David Alfred 02/26/17
[2017-02-26] MEDS: MAGNESIUM OXIDE 400 MG TABLET PO SCH ×2 (09:14→21:27)
[2017-02-26] MEDS: ALLOPURINOL 300 MG TABLET PO SCH (09:14)
[2017-02-26] MEDS: LOSARTAN 25 MG TABLET PO SCH (09:14)
[2017-02-26] MEDS: VIT A,C & E/LUTEIN/MINERALS TABLET PO SCH ×2 (09:14→21:27)
[2017-02-26] MEDS: CITALOPRAM 20 MG TABLET PO SCH (09:14)
[2017-02-26] MEDS: GABAPENTIN 400 MG CAPSULE PO SCH ×3 (09:14→21:27)
[2017-02-26] MEDS: DILTIAZEM 30 MG TABLET PO SCH ×2 (09:15→21:27)
[2017-02-26] MEDS: ASPIRIN 81 MG TAB.CHEW PO SCH (09:15)
[2017-02-26] MEDS: FENOFIBRATE 43 MG CAPSULE PO SCH (09:19)
[2017-02-26] MEDS: POLYETHYLENE GLYCOL 3350 17 GM PACKET PO SCH ×2 (09:25→21:28)
[2017-02-26] MEDS: NYSTATIN POWDER BOTTLE 15GM TOPICAL SCH ×2 (09:26→21:28)
[2017-02-26] MEDS ORDERED: VANCOMYCIN PER PHARMACY IV SCH (09:49)
[2017-02-26] MEDS ORDERED: SODIUM CHLORIDE 0.9% IV SCH (10:00)
[2017-02-26] MEDS ORDERED: CEFTRIAXONE IV SCH (10:00)
[2017-02-26] MEDS ORDERED: FLU VACC QS2017-18 36MOS UP/PF 60 MCG/0.5 ML SYRINGE IM ONE (10:00)
[2017-02-26] MEDS: BUDESONIDE 0.5 MG/2 ML AMPUL.NEB NEB SCH ×2 (11:01→21:26)
--- NOTE | 2017-02-26 11:11 | Internal Med Progress Note ---
Medical - PN: Subj Patient information: Note initiated : 02/26/17 at 11:04 am Service Date, if different from initiated Date: [] Patient: Jay Allen 77 y/o M admitted on 02/24/17 for Shortness of Breath /CHF, Dyspnea, Hyperglycemia. Chief Complaint: [] Interval history: February 25: Feels better this morning. More lucid. Vaguely remembers talking to me in the ER yesterday. Dyspnea is improved, less edema, lung exam improved. Doesn't recall our discussion of this being congestive heart failure that we had yesterday. No substernal chest pain. Does have some left shoulder pain that started this morning, worse with movement of his left arm (tends to lay on right side with left arm extended and dangling over edge of bed). Having loose stools, on significant amounts of bowel care which is being compared back.'] February 26: Patient seen examined, no acute ovenright events, trop stable, and trending down at 0.06, pt denies any Chest pains The patient still has some shortness of breath and chest tightness when he takes a deep breath, but overall feels better HE is negative I/O balance 5455 since admission. There is slight uptake on his wbc count, his creat also bumped up somewhat today. CXR shows resolution of chf. He is at baseline oxygen needs repeat lactic acid is normal He was supposed to be no rocephin as per notes,b ut I did not see any order for same. I started the patient on rocephin and he I believe got one dose, the urine cx however came back as enterococcus therefore rocephin held and vancomycin started. The patient notes he is here for pna, which is not true, on reading on the notes from Dr Cortez, it seems pt is struggling with memory as he had forgotten his conversation with Dr Cortez as well. Pertinent ROS: Denies headache, dizziness Denies chest pain, palpitations Denies cough or shortness of breath Denies abdominal pain, nausea or vomiting. - Constitutional Vitals: Vital Signs Temp Pulse Resp BP Pulse Ox 98.9 F 77 16 136/40 96 02/26/17 08:01 02/25/17 22:18 02/26/17 08:01 02/26/17 08:01 02/26/17 08:01 Period Temp Pulse Resp BP Sys/Jimenez Pulse Ox Last 24 Hr 98.0 F-99.3 F 74-84 16-20 101-136/40-57 93-96 Intake and Output 02/25/17 02/26/17 02/26/17 21:59 05:59 13:59 Intake Total 450 / 450 650 / 650 Output Total 1200 / 1200 1450 / 1450 Balance -750 / -750 -1450 / -1450 650 / 650 Weight 259 lb 12.8 oz Intake & Output: Intake & Output 02/25/17 02/26/17 02/26/17 21:59 05:59 13:59 Intake Total 450 / 450 650 / 650 Output Total 1200 / 1200 1450 / 1450 Balance -750 / -750 -1450 / -1450 650 / 650 Weight 259 lb 12.8 oz Intake: IV 50 / 50 Rocephin 2 gm In Sodium 50 / 50 Chloride 0.9% 50 ml @ 100 mls/ hr IV Q24H [facility] Rx#:[id number] Oral 450 / 450 600 / 600 Output: Urine Catheter Amount 1200 / 1200 1450 / 1450 Other: Meal Dinner snack Breakfast Percent of Meal Consumed 100% 100% 100% Feeding Ability Assist with Tray Set Up Independent Assist with Tray Set Up # Bowel Movements 1 Exam: Constitutional; Afebrile, cooperative, alert, not in distress. Eyes- No icterus, , No periorbital swelling Ears- Ext ear normal, hearing normal to conversation. Neck- Midline trachea, supple Respiratory system: Air Entry equal on both sides, No crackles or wheezing, no rhonchi. 2L oxygen CVS- Rate rhythm regular, S1,S2 heard, no gallop, no rub. Abdomen- Soft nontender abdomen, no organomegaly, no tenderness, no guarding or rigidity, [employer]- AOOx2, moving all extremities, no gross focal deficit noted. Medical - PN: Obj Da - Labs CBC & Chem 7: 02/26/17 03:40 02/26/17 03:40 Labs: Abnormal Lab Results 02/26/17 02/26/17 02/26/17 03:40 03:40 03:40 WBC 11.5 H RBC 3.99 L Hgb 13.0 L Hct 39.7 L RDW 16.9 H Gran % 81.4 H Lymph % (Auto) 10.9 L Gran # 9.3 H Lymph # (Auto) 1.3 L PT 28.2 H INR 2.5 H VBG Lactic Acid Potassium Chloride 95 L Carbon Dioxide BUN 33 H Creatinine 1.6 H Glucose 309 H Alkaline Phosphatase 33 L Troponin T NT-Pro-B Natriuret Pep Triglycerides 231 H HDL Cholesterol Urine Glucose (UA) Ur Leukocyte Esterase Hyaline Casts 02/25/17 02/25/17 02/25/17 17:45 12:00 03:50 WBC RBC Hgb Hct RDW Gran % Lymph % (Auto) Gran # Lymph # (Auto) PT INR VBG Lactic Acid Potassium Chloride Carbon Dioxide BUN Creatinine Glucose Alkaline Phosphatase Troponin T 0.06 H* 0.09 H* 0.09 H* NT-Pro-B Natriuret Pep Triglycerides HDL Cholesterol Urine Glucose (UA) Ur Leukocyte Esterase Hyaline Casts 02/25/17 02/25/17 02/25/17 03:50 03:50 00:00 WBC RBC Hgb Hct RDW Gran % Lymph % (Auto) Gran # Lymph # (Auto) PT 44.2 H INR 4.4 H VBG Lactic Acid Potassium Chloride Carbon Dioxide 33 H BUN 31 H Creatinine 1.3 H Glucose 154 H Alkaline Phosphatase 29 L Troponin T 0.06 H* NT-Pro-B Natriuret Pep Triglycerides 198 H HDL Cholesterol 21 L Urine Glucose (UA) Ur Leukocyte Esterase Hyaline Casts 02/24/17 02/24/17 02/24/17 23:03 17:30 15:11 WBC RBC Hgb Hct RDW Gran % Lymph % (Auto) Gran # Lymph # (Auto) PT INR VBG Lactic Acid Potassium Chloride Carbon Dioxide BUN Creatinine Glucose Alkaline Phosphatase Troponin T 0.07 H* 0.06 H* NT-Pro-B Natriuret Pep Triglycerides HDL Cholesterol Urine Glucose (UA) >=500 A Ur Leukocyte Esterase 25 A Hyaline Casts 8 H 02/24/17 02/24/17 02/24/17 14:48 14:04 14:04 WBC RBC Hgb Hct RDW Gran % Lymph % (Auto) Gran # Lymph # (Auto) PT 47.2 H INR 4.8 H VBG Lactic Acid 2.6 H Potassium Chloride Carbon Dioxide BUN Creatinine Glucose Alkaline Phosphatase Troponin T 0.06 H* NT-Pro-B Natriuret Pep Triglycerides HDL Cholesterol Urine Glucose (UA) Ur Leukocyte Esterase Hyaline Casts 02/24/17 02/24/17 14:04 14:04 WBC RBC 3.96 L Hgb 13.0 L Hct 39.3 L RDW 17.1 H Gran % 84.1 H Lymph % (Auto) 9.8 L Gran # Lymph # (Auto) 0.9 L PT INR VBG Lactic Acid Potassium 5.3 H Chloride Carbon Dioxide BUN 37 H Creatinine 1.5 H Glucose 479 H* Alkaline Phosphatase 33 L Troponin T NT-Pro-B Natriuret Pep 1393.0 H Triglycerides HDL Cholesterol Urine Glucose (UA) Ur Leukocyte Esterase Hyaline Casts Meds: Medications Acetaminophen (Tylenol) 650 mg PO Q6HP PRN PRN Reason: PAIN/FEVER > 101 Albuterol Sulfate (Ventolin) 2.5 mg NEB Q4HP PRN PRN Reason: Shortness Of Breath Or Wheezing Albuterol/Ipratropium (Duoneb) 3 ml NEB Q4HWA [facility] Last Admin: 02/26/17 11:00 Dose: Not Given Allopurinol (Zylopriim) 300 mg PO QDAY [facility] Last Admin: 02/26/17 09:14 Dose: 300 mg Aspirin (Aspirin) 81 mg PO DAILY [facility] Last Admin: 02/26/17 09:15 Dose: 81 mg Atorvastatin Calcium (Lipitor) 10 mg PO HS [facility] Last Admin: 02/25/17 21:18 Dose: 10 mg Budesonide (Pulmicort) 0.5 mg NEB Q12 [facility] Last Admin: 02/26/17 11:01 Dose: Not Given Citalopram Hydrobromide (Celexa) 40 mg PO DAILY [facility] Last Admin: 02/26/17 09:14 Dose: 40 mg Diagnostic Test (Pha) (Accu-Chek) 1 each FS ACHS [facility] Last Admin: 02/26/17 07:49 Dose: 1 each Digoxin (Lanoxin) 125 mcg PO DAILY@1400 [facility] Last Admin: 02/25/17 13:36 Dose: 125 mcg Diltiazem HCl (Cardizem) 60 mg PO BID [facility] Last Admin: 02/26/17 09:15 Dose: 60 mg Fenofibrate (Antara) 129 mg PO DAILY [facility] Last Admin: 02/26/17 09:19 Dose: 129 mg Furosemide (Lasix) 40 mg IV BIDD [facility] Last Admin: 02/26/17 07:46 Dose: 40 mg Gabapentin (Neurontin) 400 mg PO TID [facility] Last Admin: 02/26/17 09:14 Dose: 400 mg Vancomycin HCl 1,500 mg/ (Sodium Chloride) 500 mls @ 333.3 mls/hr IV Q24H [facility] Insulin Glargine (Lantus) 30 unit SQ HS [facility] Last Admin: 02/25/17 21:17 Dose: 30 unit Insulin Human Lispro (Humalog) 0 unit SQ ACHS [facility] PRN Reason: Protocol Last Admin: 02/26/17 08:03 Dose: 12 unit Losartan Potassium (Cozaar) 25 mg PO DAILY [facility] Last Admin: 02/26/17 09:14 Dose: 25 mg Magnesium Oxide (Magnesium Oxide) 400 mg PO BID [facility] Last Admin: 02/26/17 09:14 Dose: 400 mg Multivitamins/Minerals (Ocuvite) 1 tab PO BID [facility] Last Admin: 02/26/17 09:14 Dose: 1 tab Melatonin 3 Mg 3 - 6 mg PO HSP PRN PRN Reason: Insomnia Nystatin (Nystatin) 1 dose TOPICAL BID [facility] Last Admin: 02/26/17 09:26 Dose: 1 dose Omeprazole (Prilosec) 20 mg PO ACB [facility] Last Admin: 02/26/17 07:46 Dose: 20 mg Ondansetron HCl (Zofran) 4 mg IV Q4HP PRN PRN Reason: Nausea And Vomiting Oxycodone HCl (Roxicodone) 5 mg PO Q4HP PRN PRN Reason: Pain Polyethylene Glycol (Miralax) 17 gm PO BID [facility] Last Admin: 02/26/17 09:25 Dose: Not Given Sodium Chloride (Saline Flush) 10 ml IV Q8 [facility] Last Admin: 02/26/17 10:21 Dose: 10 ml Tamsulosin HCl (Flomax) 0.4 mg PO HS [facility] Last Admin: 02/25/17 21:17 Dose: 0.4 mg Vancomycin HCl (Vancomycin Per Pharmacy) 1 order IV UD [facility] Warfarin Sodium (Coumadin Per Pharmacy) 1 order PO UD [facility] Warfarin Sodium (Coumadin) 5 mg PO ONCE@1400 [facility] Stop: 02/26/17 14:01 Medical - PN: A/P - Time Spent With Patient Total time spent is greater than 50% in coordination of care (as documented) at patient's floor/unit and/or counseling patient: - Narrative A/P Narrative: 77-year-old male presenting with several days to weeks of worsening dyspnea, decreasing oxygen saturations, lower extremity edema, found to have evidence of heart failure. Acute on chronic diastolic congestive heart failure. He had an echocardiogram done at [facility] in December, by report shows an EF of 65%, but has grade 3 diastolic dysfunction, moderate to severe and pulm htn with pa pressure of 52. Continue with diuresis, change to once daily for now, was on twice a day furosemide, follow intake, output, daily weights; continue low sodium diet, Abnormal troponin. Level is 0.06 at presentation, bumped up to 0.09, back to 0.09, no chest pain, likely secondary to chf. Continue to trend troponins, continue his home antianginal regimen. Pt is anticoagulated on therapuetic inr. Atrial fibrillation. Chronic and rate controlled. On warfarin for stroke prophylaxis. INR high at presentation/coagulopathy from warfarin (4.8), is therapeutic today, resume home dose of coumadin .continue dig, (check level) cardizem Type 2 diabetes mellitus. Hyperglycemia at presentation, likely from decompensation of his medical condition. Suspect he may have underlying urinary infection as well. Glucoses improved. Continue with his home Lantus, diabetic diet, sliding scale insulin, adjust as needed. Chronic hypoxic respiratory failure. On oxygen chronically at home, his thinks his 2 L/m. he is back at 2L oxygen Continue supplemental oxygen as needed , titrate to maintain saturations greater than 92%. Abnormal urine analysis/ Enterococcus UTI. low grade fever, urine cx positive for enterococcus, sensitivity pending, start on v ancomycin for now, await sensitivities and deescalate based on same. Chronic kidney disease. Creatinine was 1.1-1.2 over the summer. More recently has been in the 1.3-1.4 range. creat 1.6 today, monitor closely. Gastroesophageal reflux disease. Continue acid suppression for that and prophylaxis Disposition: The patient had been at [facility] after hospitalization for sepsis and pneumonia in December at [facility]. Likely will return to [facility]. PT consult. CODE STATUS is full code Prophylaxis: PPI. No further DVT prophylaxis indicated as the patient is systemically anticoagulated for atrial fibrillation. Medical - PN: Qual - VTE Deep Vein Thrombosis/Pulmonary Embolism Present on Admission: No
[2017-02-26] MEDS: VANCOMYCIN 1,500 MG in 0.9 % SODIUM CHLORIDE 500 ML IV SCH (11:23)
[2017-02-26] MEDS ORDERED: WARFARIN 5 MG TABLET PO ONE (14:00)
[2017-02-26] MEDS: DIGOXIN 125 MCG TABLET PO SCH (14:04)
[2017-02-26] MEDS ORDERED: INSULIN GLARGINE, HUMAN 1 UNIT/0.01 ML SQ SCH (21:00)
[2017-02-26] MEDS: TAMSULOSIN 0.4 MG CAPSULE PO SCH (21:27)
[2017-02-26] MEDS: ATORVASTATIN 20 MG TABLET PO SCH (21:27)
[2017-02-27] MEDS: IPRATROPIUM/ALBUTEROL 3 ML AMPUL.NEB NEB SCH ×5 (05:50→22:06)
[2017-02-27] MEDS: 0.9 % SODIUM CHLORIDE 10 ML SYRINGE IV SCH ×5 (05:51→21:01)
[2017-02-27] MEDS: INSULIN LISPRO 1 UNIT/0.01 ML UNIT SQ SCH ×4 (07:40→21:00)
[2017-02-27] MEDS: OMEPRAZOLE 20 MG CAPSULE PO SCH (07:40)
[2017-02-27] MEDS: BUDESONIDE 0.5 MG/2 ML AMPUL.NEB NEB SCH ×2 (08:11→22:07)
[2017-02-27] MEDS: LOSARTAN 25 MG TABLET PO SCH (08:49)
[2017-02-27] MEDS: MAGNESIUM OXIDE 400 MG TABLET PO SCH ×2 (08:49→21:00)
[2017-02-27] MEDS: GABAPENTIN 400 MG CAPSULE PO SCH ×3 (08:49→21:01)
[2017-02-27] MEDS: DILTIAZEM 30 MG TABLET PO SCH ×2 (08:49→21:01)
[2017-02-27] MEDS: ASPIRIN 81 MG TAB.CHEW PO SCH (08:49)
[2017-02-27] MEDS: ALLOPURINOL 300 MG TABLET PO SCH (08:49)
[2017-02-27] MEDS: VIT A,C & E/LUTEIN/MINERALS TABLET PO SCH ×2 (08:50→21:00)
[2017-02-27] MEDS: FENOFIBRATE 43 MG CAPSULE PO SCH (08:51)
[2017-02-27] MEDS: CITALOPRAM 20 MG TABLET PO SCH (08:51)
[2017-02-27] MEDS: POLYETHYLENE GLYCOL 3350 17 GM PACKET PO SCH ×2 (08:52→21:01)
[2017-02-27] MEDS: NYSTATIN POWDER BOTTLE 15GM TOPICAL SCH ×2 (08:53→21:01)
[2017-02-27] MEDS ORDERED: FUROSEMIDE 40 MG/4 ML VIAL IV SCH (09:00)
[2017-02-27] MEDS: VANCOMYCIN 1,500 MG in 0.9 % SODIUM CHLORIDE 500 ML IV SCH (09:08)
[2017-02-27 09:58] LABS: ALT/SGPT 16 U/l (0-40); Albumin 3.2 gm/dL (3.2-5.2); Alkaline Phosphatase 33 U/L (39-117); Basophils # (Auto) 0 K/mcL (0.0-0.3); Basophils % (Auto) 0.2 % (0.0-2.0); Bilirubin,Direct < 0.2 mg/dL (0.0-0.3); Blood Urea Nitrogen 36 mg/dl (8-23); Eosinophils # (Auto) 0.5 K/mcL (0.0-0.7); Eosinophils % (Auto) 3.9 % (0.0-7.0); Gamma Glutamyl Transpeptidase 21 U/L (8-61); Granulocytes % (Auto) 81.1 % (38.0-78.0); Lymphocytes # (Auto) 1.2 K/mcL (1.5-4.8); Lymphocytes % (Auto) 10.4 % (15.5-49.0); Magnesium 2.1 mg/dL (1.6-2.5); Mean Cell Volume 99.6 fL (80.0-100.0); Mean Corpuscular Hemoglobin 32.9 pg (26.0-34.0); Monocytes # (Auto) 0.5 K/mcL (0.1-0.9); Monocytes % (Auto) 4.4 % (1.0-12.0); Platelet Count 201 K/mcL (140-440); RBC 3.94 M/mcL (4.50-5.90); Red Cell Distribution Width 16.8 % (11.5-14.5)
[2017-02-27] MEDS ORDERED: FLU VACC QS2017-18 36MOS UP/PF 60 MCG/0.5 ML SYRINGE IM ONE (10:00)
--- NOTE | 2017-02-27 12:25 | Internal Med Progress Note ---
Medical - PN: Subj Patient information: Note initiated : 02/27/17 at 12:23 pm Service Date, if different from initiated Date: [] Patient: Jay Allen 77 y/o M admitted on 02/24/17 for Shortness of Breath /CHF, Dyspnea, Hyperglycemia. Chief Complaint: [] Interval history: February 25: Feels better this morning. More lucid. Vaguely remembers talking to me in the ER yesterday. Dyspnea is improved, less edema, lung exam improved. Doesn't recall our discussion of this being congestive heart failure that we had yesterday. No substernal chest pain. Does have some left shoulder pain that started this morning, worse with movement of his left arm (tends to lay on right side with left arm extended and dangling over edge of bed). Having loose stools, on significant amounts of bowel care which is being compared back.'] February 26: Patient seen examined, no acute ovenright events, trop stable, and trending down at 0.06, pt denies any Chest pains The patient still has some shortness of breath and chest tightness when he takes a deep breath, but overall feels better HE is negative I/O balance 5455 since admission. There is slight uptake on his wbc count, his creat also bumped up somewhat today. CXR shows resolution of chf. He is at baseline oxygen needs repeat lactic acid is normal He was supposed to be no rocephin as per notes,b ut I did not see any order for same. I started the patient on rocephin and he I believe got one dose, the urine cx however came back as enterococcus therefore rocephin held and vancomycin started. The patient notes he is here for pna, which is not true, on reading on the notes from Dr Cortez, it seems pt is struggling with memory as he had forgotten his conversation with Dr Cortez as well. February 27 The patient seen examined, sitting comfortably eating breakfast denies any acute concerns no cp or sob on baseline oxygen on vancomycin for UTI secondary to enterococcus, sensitivities pending. repeat CXR shows resolution of chf. resume oral lasix Ok to xfer to med surg Pertinent ROS: Denies headache, dizziness Denies chest pain, palpitations Denies cough or shortness of breath Denies abdominal pain, nausea or vomiting. - Constitutional Vitals: Vital Signs Temp Pulse Resp BP Pulse Ox 98.0 F 77 18 108/82 94 02/27/17 07:54 02/27/17 08:13 02/27/17 08:13 02/27/17 07:54 02/27/17 07:54 Period Temp Pulse Resp BP Sys/Jimenez Pulse Ox Last 24 Hr 97.2 F-98.6 F 75-77 18-22 108-132/33-82 92-97 Intake and Output 02/26/17 02/27/17 02/27/17 21:59 05:59 13:59 Intake Total 1430 / 1430 50 / 50 500 / 500 Output Total 1100 / 1100 575 / 575 Balance 330 / 330 -525 / -525 500 / 500 Weight 260 lb 3.2 oz Intake & Output: Intake & Output 02/26/17 02/27/17 02/27/17 21:59 05:59 13:59 Intake Total 1430 / 1430 50 / 50 500 / 500 Output Total 1100 / 1100 575 / 575 Balance 330 / 330 -525 / -525 500 / 500 Weight 260 lb 3.2 oz Intake: IV 500 / 500 500 / 500 Vancomycin 1,500 mg In Sodium 500 / 500 500 / 500 Chloride 0.9% 500 ml @ 333.3 mls/hr IV Q24H [facility] Rx#: [id number] Oral 930 / 930 50 / 50 Output: Urine Catheter Amount 1100 / 1100 575 / 575 Other: Meal snack Percent of Meal Consumed 100% Feeding Ability Assist with Tray Set Up Exam: Constitutional; Afebrile, cooperative, alert, not in distress. Eyes- No icterus, , No periorbital swelling Ears- Ext ear normal, hearing normal to conversation. Neck- Midline trachea, supple Respiratory system: Air Entry equal on both sides, No crackles or wheezing, no rhonchi. CVS- Rate rhythm irregular, S1,S2 heard, no gallop, no rub. Abdomen- Soft nontender abdomen, no organomegaly, no tenderness, no guarding or rigidity, large pannus [employer]CIAL SERVICES TECHNICIAN- AOOx1, moving all extremities, no gross focal deficit noted. Medical - PN: Obj Da - Labs CBC & Chem 7: 02/27/17 04:06 02/27/17 04:06 Labs: Abnormal Lab Results 02/27/17 02/27/17 02/27/17 10:28 04:06 04:06 WBC 11.5 H RBC 3.94 L Hgb 12.9 L Hct 39.2 L RDW 16.8 H Gran % 81.1 H Lymph % (Auto) 10.4 L Gran # 9.3 H Lymph # (Auto) 1.2 L PT 22.5 H INR 1.9 H VBG Lactic Acid Potassium Chloride Carbon Dioxide BUN 36 H Creatinine 1.6 H Glucose 287 H Alkaline Phosphatase 33 L Troponin T NT-Pro-B Natriuret Pep Triglycerides 170 H HDL Cholesterol Urine Glucose (UA) Ur Leukocyte Esterase Hyaline Casts 02/26/17 02/26/17 02/26/17 03:40 03:40 03:40 WBC 11.5 H RBC 3.99 L Hgb 13.0 L Hct 39.7 L RDW 16.9 H Gran % 81.4 H Lymph % (Auto) 10.9 L Gran # 9.3 H Lymph # (Auto) 1.3 L PT 28.2 H INR 2.5 H VBG Lactic Acid Potassium Chloride 95 L Carbon Dioxide BUN 33 H Creatinine 1.6 H Glucose 309 H Alkaline Phosphatase 33 L Troponin T NT-Pro-B Natriuret Pep Triglycerides 231 H HDL Cholesterol Urine Glucose (UA) Ur Leukocyte Esterase Hyaline Casts 02/25/17 02/25/17 02/25/17 17:45 12:00 03:50 WBC RBC Hgb Hct RDW Gran % Lymph % (Auto) Gran # Lymph # (Auto) PT INR VBG Lactic Acid Potassium Chloride Carbon Dioxide BUN Creatinine Glucose Alkaline Phosphatase Troponin T 0.06 H* 0.09 H* 0.09 H* NT-Pro-B Natriuret Pep Triglycerides HDL Cholesterol Urine Glucose (UA) Ur Leukocyte Esterase Hyaline Casts 02/25/17 02/25/17 02/25/17 03:50 03:50 00:00 WBC RBC Hgb Hct RDW Gran % Lymph % (Auto) Gran # Lymph # (Auto) PT 44.2 H INR 4.4 H VBG Lactic Acid Potassium Chloride Carbon Dioxide 33 H BUN 31 H Creatinine 1.3 H Glucose 154 H Alkaline Phosphatase 29 L Troponin T 0.06 H* NT-Pro-B Natriuret Pep Triglycerides 198 H HDL Cholesterol 21 L Urine Glucose (UA) Ur Leukocyte Esterase Hyaline Casts 02/24/17 02/24/17 02/24/17 23:03 17:30 15:11 WBC RBC Hgb Hct RDW Gran % Lymph % (Auto) Gran # Lymph # (Auto) PT INR VBG Lactic Acid Potassium Chloride Carbon Dioxide BUN Creatinine Glucose Alkaline Phosphatase Troponin T 0.07 H* 0.06 H* NT-Pro-B Natriuret Pep Triglycerides HDL Cholesterol Urine Glucose (UA) >=500 A Ur Leukocyte Esterase 25 A Hyaline Casts 8 H 02/24/17 02/24/17 02/24/17 14:48 14:04 14:04 WBC RBC Hgb Hct RDW Gran % Lymph % (Auto) Gran # Lymph # (Auto) PT 47.2 H INR 4.8 H VBG Lactic Acid 2.6 H Potassium Chloride Carbon Dioxide BUN Creatinine Glucose Alkaline Phosphatase Troponin T 0.06 H* NT-Pro-B Natriuret Pep Triglycerides HDL Cholesterol Urine Glucose (UA) Ur Leukocyte Esterase Hyaline Casts 02/24/17 02/24/17 14:04 14:04 WBC RBC 3.96 L Hgb 13.0 L Hct 39.3 L RDW 17.1 H Gran % 84.1 H Lymph % (Auto) 9.8 L Gran # Lymph # (Auto) 0.9 L PT INR VBG Lactic Acid Potassium 5.3 H Chloride Carbon Dioxide BUN 37 H Creatinine 1.5 H Glucose 479 H* Alkaline Phosphatase 33 L Troponin T NT-Pro-B Natriuret Pep 1393.0 H Triglycerides HDL Cholesterol Urine Glucose (UA) Ur Leukocyte Esterase Hyaline Casts Meds: Medications Acetaminophen (Tylenol) 650 mg PO Q6HP PRN PRN Reason: PAIN/FEVER > 101 Albuterol Sulfate (Ventolin) 2.5 mg NEB Q4HP PRN PRN Reason: Shortness Of Breath Or Wheezing Albuterol/Ipratropium (Duoneb) 3 ml NEB Q4HWA [facility] Last Admin: 02/27/17 08:11 Dose: 3 ml Allopurinol (Zylopriim) 300 mg PO QDAY [facility] Last Admin: 02/27/17 08:49 Dose: 300 mg Aspirin (Aspirin) 81 mg PO DAILY [facility] Last Admin: 02/27/17 08:49 Dose: 81 mg Atorvastatin Calcium (Lipitor) 10 mg PO HS [facility] Last Admin: 02/26/17 21:27 Dose: 10 mg Budesonide (Pulmicort) 0.5 mg NEB Q12 [facility] Last Admin: 02/27/17 08:11 Dose: 0.5 mg Citalopram Hydrobromide (Celexa) 40 mg PO DAILY [facility] Last Admin: 02/27/17 08:51 Dose: 40 mg Diagnostic Test (Pha) (Accu-Chek) 1 each FS ACHS [facility] Last Admin: 02/27/17 12:10 Dose: 1 each Digoxin (Lanoxin) 125 mcg PO DAILY@1400 [facility] Last Admin: 02/26/17 14:04 Dose: 125 mcg Diltiazem HCl (Cardizem) 60 mg PO BID [facility] Last Admin: 02/27/17 08:49 Dose: 60 mg Fenofibrate (Antara) 129 mg PO DAILY [facility] Last Admin: 02/27/17 08:51 Dose: 129 mg Furosemide (Lasix) 40 mg IV DAILY [facility] Last Admin: 02/27/17 08:51 Dose: 40 mg Gabapentin (Neurontin) 400 mg PO TID [facility] Last Admin: 02/27/17 08:49 Dose: 400 mg Vancomycin HCl 1,500 mg/ (Sodium Chloride) 500 mls @ 333.3 mls/hr IV Q24H [facility] Last Infusion: 02/27/17 11:30 Dose: Infused Insulin Glargine (Lantus) 45 unit SQ HS [facility] Last Admin: 02/26/17 21:26 Dose: 45 unit Insulin Human Lispro (Humalog) 0 unit SQ ACHS [facility] PRN Reason: Protocol Last Admin: 02/27/17 12:10 Dose: 18 unit Losartan Potassium (Cozaar) 25 mg PO DAILY [facility] Last Admin: 02/27/17 08:49 Dose: 25 mg Magnesium Oxide (Magnesium Oxide) 400 mg PO BID [facility] Last Admin: 02/27/17 08:49 Dose: 400 mg Multivitamins/Minerals (Ocuvite) 1 tab PO BID [facility] Last Admin: 02/27/17 08:50 Dose: 1 tab Melatonin 3 Mg 3 - 6 mg PO HSP PRN PRN Reason: Insomnia Nystatin (Nystatin) 1 dose TOPICAL BID [facility] Last Admin: 02/27/17 08:53 Dose: 1 dose Omeprazole (Prilosec) 20 mg PO ACB [facility] Last Admin: 02/27/17 07:40 Dose: 20 mg Ondansetron HCl (Zofran) 4 mg IV Q4HP PRN PRN Reason: Nausea And Vomiting Oxycodone HCl (Roxicodone) 5 mg PO Q4HP PRN PRN Reason: Pain Polyethylene Glycol (Miralax) 17 gm PO BID [facility] Last Admin: 02/27/17 08:52 Dose: Not Given Sodium Chloride (Saline Flush) 10 ml IV Q8 [facility] Last Admin: 02/27/17 11:35 Dose: 10 ml Tamsulosin HCl (Flomax) 0.4 mg PO HS [facility] Last Admin: 02/26/17 21:27 Dose: 0.4 mg Vancomycin HCl (Vancomycin Per Pharmacy) 1 order IV [facility] Warfarin Sodium (Coumadin Per Pharmacy) 1 order PO [facility] Medical - PN: A/P - Time Spent With Patient Total time spent is greater than 50% in coordination of care (as documented) at patient's floor/unit and/or counseling patient: - Narrative A/P Narrative: 77-year-old male presenting with several days to weeks of worsening dyspnea, decreasing oxygen saturations, lower extremity edema, found to have evidence of heart failure. Acute on chronic diastolic congestive heart failure. He had an echocardiogram done at [facility] in December, by report shows an EF of 65%, but has grade 3 diastolic dysfunction, moderate to severe and pulm htn with pa pressure of 52. change to oral lasix bid for now and monitor response. -4500ml since admission. Abnormal troponin. Level is 0.06 at presentation, bumped up to 0.09, back to 0.09, no chest pain, likely secondary to chf. Continue to trend troponins, continue his home antianginal regimen. Pt is anticoagulated on therapuetic inr. Atrial fibrillation. Chronic and rate controlled. On warfarin for stroke prophylaxis. INR high at presentation, but 1.9 today, resume home dose of coumadin .continue dig, (level 0.8 therapeutic) continue cardizem Type 2 diabetes mellitus. Hyperglycemia at presentation, likely from decompensation of his medical condition. remains uncontrolled. Suspect he may have underlying urinary infection as well. Increase dose of lantus and continue high dose sliding scale insulin. Chronic hypoxic respiratory failure. On oxygen chronically at home, his thinks his 2 L/m. he is back at 2L oxygen Continue supplemental oxygen as needed , titrate to maintain saturations greater than 92%. Abnormal urine analysis/ Enterococcus UTI. low grade fever, urine cx positive for enterococcus, sensitivity pending, On vancomycin for now, await sensitivities and deescalate based on same. Chronic kidney disease. Creatinine was 1.1-1.2 over the summer. More recently has been in the 1.3-1.4 range. creat 1.4 today, monitor closely. Gastroesophageal reflux disease. Continue acid suppression for that and prophylaxis Disposition: The patient had been at [facility] after hospitalization for sepsis and pneumonia in December at [facility]. Likely will return to [facility]. PT consult. CODE STATUS is full code Prophylaxis: PPI. No further DVT prophylaxis indicated as the patient is systemically anticoagulated for atrial fibrillation. STable for Xfer to Med surg status. Medical - PN: Qual - VTE Deep Vein Thrombosis/Pulmonary Embolism Present on Admission: No
[2017-02-27] MEDS ORDERED: oxyCODONE HCL 5 MG TABLET PO PRN (13:45)
[2017-02-27] MEDS ORDERED: VANCOMYCIN PER PHARMACY IV SCH (13:45)
[2017-02-27] MEDS ORDERED: ALBUTEROL SULFATE 2.5 MG/3 ML NEBULIZER NEB PRN (13:45)
[2017-02-27] MEDS ORDERED: ACETAMINOPHEN 325 MG TABLET PO PRN (13:45)
[2017-02-27] MEDS ORDERED: ONDANSETRON 4 MG/2 ML VIAL IV PRN (13:45)
[2017-02-27] MEDS: DIGOXIN 125 MCG TABLET PO SCH (14:20)
[2017-02-27] MEDS ORDERED: INSULIN REGULAR, HUMAN 1 UNIT/0.01 ML UNIT IV ONE (15:14)
[2017-02-27] MEDS: FUROSEMIDE 40 MG TABLET PO SCH (15:29)
[2017-02-27] MEDS ORDERED: TAMSULOSIN 0.4 MG CAPSULE PO SCH (21:00)
[2017-02-27] MEDS ORDERED: INSULIN GLARGINE, HUMAN 1 UNIT/0.01 ML SQ SCH ×2 (21:00)
[2017-02-27] MEDS: ATORVASTATIN 20 MG TABLET PO SCH (21:00)
[2017-02-28] MEDS: IPRATROPIUM/ALBUTEROL 3 ML AMPUL.NEB NEB SCH ×5 (04:16→21:24)
[2017-02-28] MEDS: 0.9 % SODIUM CHLORIDE 10 ML SYRINGE IV SCH ×3 (04:18→22:05)
[2017-02-28 06:31] LABS: ALT/SGPT 15 U/l (0-40); Albumin 3.1 gm/dL (3.2-5.2); Alkaline Phosphatase 31 U/L (39-117); Bilirubin,Direct < 0.2 mg/dL (0.0-0.3); Blood Urea Nitrogen 35 mg/dl (8-23); Gamma Glutamyl Transpeptidase 22 U/L (8-61); Magnesium 2.1 mg/dL (1.6-2.5); Uric Acid 6.3 mg/dL (2.5-8.0)
[2017-02-28 07:09] LABS: Basophils # (Auto) 0 K/mcL (0.0-0.3); Basophils % (Auto) 0.2 % (0.0-2.0); Eosinophils # (Auto) 0.4 K/mcL (0.0-0.7); Eosinophils % (Auto) 3.6 % (0.0-7.0); Granulocytes % (Auto) 81.3 % (38.0-78.0); Lymphocytes # (Auto) 1.2 K/mcL (1.5-4.8); Mean Cell Volume 99.9 fL (80.0-100.0); Mean Corpuscular HGB Conc 32.8 g/dL (31.0-36.0); Mean Corpuscular Hemoglobin 32.8 pg (26.0-34.0); Monocytes # (Auto) 0.6 K/mcL (0.1-0.9); Monocytes % (Auto) 4.9 % (1.0-12.0); Platelet Count 204 K/mcL (140-440); RBC 3.86 M/mcL (4.50-5.90); Red Cell Distribution Width 16.9 % (11.5-14.5)
[2017-02-28] MEDS: FUROSEMIDE 40 MG TABLET PO SCH ×2 (07:32→12:10)
[2017-02-28] MEDS: INSULIN LISPRO 1 UNIT/0.01 ML UNIT SQ SCH ×4 (07:32→21:51)
[2017-02-28] MEDS: OMEPRAZOLE 20 MG CAPSULE PO SCH (07:32)
[2017-02-28] MEDS: LOSARTAN 25 MG TABLET PO SCH (08:38)
[2017-02-28] MEDS: FENOFIBRATE 43 MG CAPSULE PO SCH (08:38)
[2017-02-28] MEDS: CITALOPRAM 20 MG TABLET PO SCH (08:38)
[2017-02-28] MEDS: ASPIRIN 81 MG TAB.CHEW PO SCH (08:39)
[2017-02-28] MEDS: DILTIAZEM 30 MG TABLET PO SCH ×2 (08:39→21:50)
[2017-02-28] MEDS: GABAPENTIN 400 MG CAPSULE PO SCH ×3 (08:46→21:50)
[2017-02-28] MEDS: ALLOPURINOL 300 MG TABLET PO SCH (08:46)
[2017-02-28] MEDS: POLYETHYLENE GLYCOL 3350 17 GM PACKET PO SCH ×2 (08:46→21:49)
[2017-02-28] MEDS: VIT A,C & E/LUTEIN/MINERALS TABLET PO SCH ×2 (08:46→21:50)
[2017-02-28] MEDS: MAGNESIUM OXIDE 400 MG TABLET PO SCH ×2 (08:46→21:50)
[2017-02-28] MEDS ORDERED: FUROSEMIDE 40 MG/4 ML VIAL IV SCH (09:00)
[2017-02-28] MEDS: BUDESONIDE 0.5 MG/2 ML AMPUL.NEB NEB SCH ×2 (09:09→21:24)
[2017-02-28] MEDS: INSULIN GLARGINE, HUMAN 1 UNIT/0.01 ML SQ SCH ×2 (10:02→21:51)
[2017-02-28] MEDS: NYSTATIN POWDER BOTTLE 15GM TOPICAL SCH ×2 (10:02→22:38)
[2017-02-28] MEDS: VANCOMYCIN 1,500 MG in 0.9 % SODIUM CHLORIDE 500 ML IV SCH (10:02)
--- NOTE | 2017-02-28 12:42 | Internal Med Progress Note ---
Medical - PN: Subj Patient information: Note initiated : 02/28/17 at 12:40 pm Service Date, if different from initiated Date: [] Patient: Jay Allen 77 y/o M admitted on 02/24/17 for Shortness of Breath /CHF, Dyspnea, Hyperglycemia. Chief Complaint: [] Interval history: February 25: Feels better this morning. More lucid. Vaguely remembers talking to me in the ER yesterday. Dyspnea is improved, less edema, lung exam improved. Doesn't recall our discussion of this being congestive heart failure that we had yesterday. No substernal chest pain. Does have some left shoulder pain that started this morning, worse with movement of his left arm (tends to lay on right side with left arm extended and dangling over edge of bed). Having loose stools, on significant amounts of bowel care which is being compared back.'] February 26: Patient seen examined, no acute ovenright events, trop stable, and trending down at 0.06, pt denies any Chest pains The patient still has some shortness of breath and chest tightness when he takes a deep breath, but overall feels better HE is negative I/O balance 5455 since admission. There is slight uptake on his wbc count, his creat also bumped up somewhat today. CXR shows resolution of chf. He is at baseline oxygen needs repeat lactic acid is normal He was supposed to be no rocephin as per notes,b ut I did not see any order for same. I started the patient on rocephin and he I believe got one dose, the urine cx however came back as enterococcus therefore rocephin held and vancomycin started. The patient notes he is here for pna, which is not true, on reading on the notes from Dr Cortez, it seems pt is struggling with memory as he had forgotten his conversation with Dr Cortez as well. February 27 The patient seen examined, sitting comfortably eating breakfast denies any acute concerns no cp or sob on baseline oxygen on vancomycin for UTI secondary to enterococcus, sensitivities pending. repeat CXR shows resolution of chf. resume oral lasix Ok to xfer to med surg February 28 Patient seen examined, no acute overnight events Pt tolertating po well, at near baseline oxygen on oral lasix now wbc slighty worsned today to 11.9, Procalcitonin is 0.12 On vanco for enterococcus UTI. d/c farah today, on flomax, dose increased to bid today glucose still high, at home was taking 40units bid of lantus, resume same and monitor Pertinent ROS: Denies headache, dizziness Denies chest pain, palpitations Denies cough or shortness of breath Denies abdominal pain, nausea or vomiting. - Constitutional Vitals: Vital Signs Temp Pulse Resp BP Pulse Ox 97.9 F 80 24 H 116/64 93 02/28/17 12:20 02/28/17 12:20 02/28/17 12:20 02/28/17 12:20 02/28/17 12:20 Period Temp Pulse Resp BP Sys/Jimenez Pulse Ox Last 24 Hr 97.6 F-99.1 F 65-80 18-24 103-123/55-67 84-96 Intake and Output 02/27/17 02/28/17 02/28/17 21:59 05:59 13:59 Intake Total 580 / 580 100 / 100 740 / 740 Output Total 100 / 100 975 / 975 450 / 450 Balance 480 / 480 -875 / -875 290 / 290 Weight 265 lb Intake & Output: Intake & Output 02/27/17 02/28/17 02/28/17 21:59 05:59 13:59 Intake Total 580 / 580 100 / 100 740 / 740 Output Total 100 / 100 975 / 975 450 / 450 Balance 480 / 480 -875 / -875 290 / 290 Weight 265 lb Intake: IV 500 / 500 Vancomycin 1,500 mg In Sodium 500 / 500 Chloride 0.9% 500 ml @ 333.3 mls/hr IV Q24H [facility] Rx#: [id number] Oral 580 / 580 100 / 100 240 / 240 Output: Urine Catheter Amount 100 / 100 975 / 975 450 / 450 Other: Meal Dinner crackers and applesauce Percent of Meal Consumed 100% 100% Feeding Ability Independent # Voids 1 Exam: Constitutional; Afebrile, cooperative, alert, not in distress. Eyes- No icterus, , No periorbital swelling Ears- Ext ear normal, hearing normal to conversation. Neck- Midline trachea, supple Respiratory system: Air Entry equal on both sides, No crackles or wheezing, no rhonchi. CVS- Rate rhythm irregular, S1,S2 heard, no gallop, no rub. 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 Medical - PN: Obj Da - Labs CBC & Chem 7: 02/28/17 04:31 02/28/17 04:31 Labs: Abnormal Lab Results 02/28/17 02/28/17 02/28/17 04:31 04:31 04:31 WBC 11.9 H RBC 3.86 L Hgb 12.7 L Hct 38.6 L RDW 16.9 H Gran % 81.3 H Lymph % (Auto) 10.0 L Gran # 9.6 H Lymph # (Auto) 1.2 L PT 24.4 H INR 2.1 H Chloride Carbon Dioxide 32 H BUN 35 H Creatinine 1.5 H Glucose 167 H Alkaline Phosphatase 31 L Troponin T Albumin 3.1 L Triglycerides 151 H 02/27/17 02/27/17 02/27/17 10:28 04:06 04:06 WBC 11.5 H RBC 3.94 L Hgb 12.9 L Hct 39.2 L RDW 16.8 H Gran % 81.1 H Lymph % (Auto) 10.4 L Gran # 9.3 H Lymph # (Auto) 1.2 L PT 22.5 H INR 1.9 H Chloride Carbon Dioxide BUN 36 H Creatinine 1.6 H Glucose 287 H Alkaline Phosphatase 33 L Troponin T Albumin Triglycerides 170 H 02/26/17 02/26/17 02/26/17 03:40 03:40 03:40 WBC 11.5 H RBC 3.99 L Hgb 13.0 L Hct 39.7 L RDW 16.9 H Gran % 81.4 H Lymph % (Auto) 10.9 L Gran # 9.3 H Lymph # (Auto) 1.3 L PT 28.2 H INR 2.5 H Chloride 95 L Carbon Dioxide BUN 33 H Creatinine 1.6 H Glucose 309 H Alkaline Phosphatase 33 L Troponin T Albumin Triglycerides 231 H 02/25/17 02/25/17 02/25/17 17:45 12:00 00:00 WBC RBC Hgb Hct RDW Gran % Lymph % (Auto) Gran # Lymph # (Auto) PT INR Chloride Carbon Dioxide BUN Creatinine Glucose Alkaline Phosphatase Troponin T 0.06 H* 0.09 H* 0.06 H* Albumin Triglycerides Meds: Medications Acetaminophen (Tylenol) 650 mg PO Q6HP PRN PRN Reason: PAIN/FEVER > 101 Albuterol Sulfate (Ventolin) 2.5 mg NEB Q4HP PRN PRN Reason: Shortness Of Breath Or Wheezing Albuterol/Ipratropium (Duoneb) 3 ml NEB Q4HWA [facility] Last Admin: 02/28/17 09:09 Dose: 3 ml Allopurinol (Zylopriim) 300 mg PO QDAY [facility] Last Admin: 02/28/17 08:46 Dose: 300 mg Aspirin (Aspirin) 81 mg PO DAILY [facility] Last Admin: 02/28/17 08:39 Dose: 81 mg Atorvastatin Calcium (Lipitor) 10 mg PO HS [facility] Last Admin: 02/27/17 21:00 Dose: 10 mg Budesonide (Pulmicort) 0.5 mg NEB Q12 [facility] Last Admin: 02/28/17 09:09 Dose: 0.5 mg Citalopram Hydrobromide (Celexa) 40 mg PO DAILY [facility] Last Admin: 02/28/17 08:38 Dose: 40 mg Diagnostic Test (Pha) (Accu-Chek) 1 each FS ACHS [facility] Last Admin: 02/28/17 12:10 Dose: 1 each Digoxin (Lanoxin) 125 mcg PO DAILY@1400 [facility] Last Admin: 02/27/17 14:20 Dose: 125 mcg Diltiazem HCl (Cardizem) 60 mg PO BID [facility] Last Admin: 02/28/17 08:39 Dose: 60 mg Fenofibrate (Antara) 129 mg PO DAILY [facility] Last Admin: 02/28/17 08:38 Dose: 129 mg Furosemide (Lasix) 40 mg PO BIDD@0800,1200 [facility] Last Admin: 02/28/17 12:10 Dose: 40 mg Gabapentin (Neurontin) 400 mg PO TID [facility] Last Admin: 02/28/17 08:46 Dose: 400 mg Vancomycin HCl 1,500 mg/ (Sodium Chloride) 500 mls @ 333.3 mls/hr IV Q24H [facility] Last Infusion: 02/28/17 11:51 Dose: Infused Insulin Glargine (Lantus) 40 unit SQ BID [facility] Last Admin: 02/28/17 10:02 Dose: 40 unit Insulin Human Lispro (Humalog) 0 unit SQ ACHS [facility] PRN Reason: Protocol Last Admin: 02/28/17 12:10 Dose: 9 unit Losartan Potassium (Cozaar) 25 mg PO DAILY [facility] Last Admin: 02/28/17 08:38 Dose: 25 mg Magnesium Oxide (Magnesium Oxide) 400 mg PO BID [facility] Last Admin: 02/28/17 08:46 Dose: 400 mg Multivitamins/Minerals (Ocuvite) 1 tab PO BID [facility] Last Admin: 02/28/17 08:46 Dose: 1 tab Nystatin (Nystatin) 1 dose TOPICAL BID [facility] Last Admin: 02/28/17 10:02 Dose: 1 dose Omeprazole (Prilosec) 20 mg PO ACB [facility] Last Admin: 02/28/17 07:32 Dose: 20 mg Ondansetron HCl (Zofran) 4 mg IV Q4HP PRN PRN Reason: Nausea And Vomiting Oxycodone HCl (Roxicodone) 5 mg PO Q4HP PRN PRN Reason: Pain Melatonin 3 Mg (Tablet) 3 - 6 dose PO HSP PRN PRN Reason: Insomnia Polyethylene Glycol (Miralax) 17 gm PO BID [facility] Last Admin: 02/28/17 08:46 Dose: 17 gm Sodium Chloride (Saline Flush) 10 ml IV Q8 [facility] Last Admin: 02/28/17 04:18 Dose: 10 ml Tamsulosin HCl (Flomax) 0.4 mg PO BID [facility] Vancomycin HCl (Vancomycin Per Pharmacy) 1 order IV [facility] Warfarin Sodium (Coumadin Per Pharmacy) 1 order PO UD [facility] Warfarin Sodium (Coumadin) 7.5 mg PO ONCE@1400 [facility] Stop: 02/28/17 14:01 Medical - PN: A/P - Time Spent With Patient Total time spent is greater than 50% in coordination of care (as documented) at patient's floor/unit and/or counseling patient: - Narrative A/P Narrative: 77-year-old male presenting with several days to weeks of worsening dyspnea, decreasing oxygen saturations, lower extremity edema, found to have evidence of heart failure. Acute on chronic diastolic congestive heart failure. He had an echocardiogram done at [facility] in December, by report shows an EF of 65%, but has grade 3 diastolic dysfunction, moderate to severe and pulm htn with pa pressure of 52. on oral lasix.. -5800 since admission now. Abnormal troponin. Level is 0.06 at presentation, bumped up to 0.09, back to 0.09, no chest pain, likely secondary to chf. Continue to trend troponins, continue his home antianginal regimen. Pt is anticoagulated on therapuetic inr. Atrial fibrillation. Chronic and rate controlled. On warfarin for stroke prophylaxis. INR high at presentation, 2.1 today, resume home dose of coumadin .continue dig, (level 0.8 therapeutic) continue cardizem Type 2 diabetes mellitus. Hyperglycemia at presentation, likely from decompensation of his medical condition. remains uncontrolled. increase dose of lantus to 40 units bid. high dose sliding scale. Chronic hypoxic respiratory failure. On oxygen chronically at home, his thinks his 2 L/m. he is back at 2L oxygen Continue supplemental oxygen as needed , titrate to maintain saturations greater than 92%. Abnormal urine analysis/ Enterococcus UTI. low grade fever, urine cx positive for enterococcus, sensitivity pending, On vancomycin for now, await sensitivities and deescalate based on same. d/c farah BPH: bid flomax for now, farah to be removed and patient status monitored, replace farah if needed. outpatient urology follow up if needed . Chronic kidney disease. Creatinine was 1.1-1.2 over the summer. More recently has been in the 1.3-1.4 range.stable at 1.5 today Gastroesophageal reflux disease. Continue acid suppression for that and prophylaxis Disposition: The patient had been at [facility] after hospitalization for sepsis and pneumonia in December at [facility]. Likely will return to [facility]. CODE STATUS is full code Prophylaxis: PPI. No further DVT prophylaxis indicated as the patient is systemically anticoagulated for atrial fibrillation. Medical - PN: Qual - VTE Deep Vein Thrombosis/Pulmonary Embolism Present on Admission: No
[2017-02-28] MEDS: DIGOXIN 125 MCG TABLET PO SCH (13:24)
[2017-02-28] MEDS ORDERED: WARFARIN 7.5 MG TABLET PO ONE (14:00)
[2017-02-28] MEDS: ATORVASTATIN 20 MG TABLET PO SCH (21:54)
[2017-02-28] MEDS: TAMSULOSIN 0.4 MG CAPSULE PO SCH (21:54)
[2017-03-01 05:33] LABS: Basophils # (Auto) 0 K/mcL (0.0-0.3); Basophils % (Auto) 0.3 % (0.0-2.0); Eosinophils # (Auto) 0.4 K/mcL (0.0-0.7); Eosinophils % (Auto) 4.9 % (0.0-7.0); Granulocytes % (Auto) 72.9 % (38.0-78.0); Lymphocytes # (Auto) 1.3 K/mcL (1.5-4.8); Lymphocytes % (Auto) 14.9 % (15.5-49.0); Mean Cell Volume 99.4 fL (80.0-100.0); Mean Corpuscular Hemoglobin 32.8 pg (26.0-34.0); Monocytes # (Auto) 0.6 K/mcL (0.1-0.9); Platelet Count 195 K/mcL (140-440); RBC 3.87 M/mcL (4.50-5.90)
[2017-03-01 05:55] LABS: ALT/SGPT 13 U/l (0-40); Albumin 3.2 gm/dL (3.2-5.2); Alkaline Phosphatase 30 U/L (39-117); Bilirubin,Direct < 0.2 mg/dL (0.0-0.3); Blood Urea Nitrogen 31 mg/dl (8-23); Gamma Glutamyl Transpeptidase 20 U/L (8-61); Magnesium 2.2 mg/dL (1.6-2.5); Uric Acid 5.6 mg/dL (2.5-8.0)
[2017-03-01] MEDS: 0.9 % SODIUM CHLORIDE 10 ML SYRINGE IV SCH (06:13)
[2017-03-01] MEDS: INSULIN LISPRO 1 UNIT/0.01 ML UNIT SQ SCH (06:56)
[2017-03-01] MEDS ORDERED: IPRATROPIUM/ALBUTEROL 3 ML AMPUL.NEB NEB SCH (07:00)
[2017-03-01] MEDS: BUDESONIDE 0.5 MG/2 ML AMPUL.NEB NEB SCH (07:14)
[2017-03-01] MEDS: OMEPRAZOLE 20 MG CAPSULE PO SCH (07:22)
[2017-03-01] MEDS: FUROSEMIDE 40 MG TABLET PO SCH (07:22)
[2017-03-01] MEDS: VANCOMYCIN 1,500 MG in 0.9 % SODIUM CHLORIDE 500 ML IV SCH (09:15)
[2017-03-01] MEDS: NYSTATIN POWDER BOTTLE 15GM TOPICAL SCH (09:19)
[2017-03-01] MEDS: INSULIN GLARGINE, HUMAN 1 UNIT/0.01 ML SQ SCH (09:21)
[2017-03-01] MEDS: DILTIAZEM 30 MG TABLET PO SCH (09:22)
[2017-03-01] MEDS: POLYETHYLENE GLYCOL 3350 17 GM PACKET PO SCH (09:22)
[2017-03-01] MEDS: FENOFIBRATE 43 MG CAPSULE PO SCH (09:23)
[2017-03-01] MEDS: CITALOPRAM 20 MG TABLET PO SCH (09:23)
[2017-03-01] MEDS: GABAPENTIN 400 MG CAPSULE PO SCH (09:23)
[2017-03-01] MEDS: MAGNESIUM OXIDE 400 MG TABLET PO SCH (09:24)
[2017-03-01] MEDS: ASPIRIN 81 MG TAB.CHEW PO SCH (09:24)
[2017-03-01] MEDS: TAMSULOSIN 0.4 MG CAPSULE PO SCH (09:24)
[2017-03-01] MEDS: VIT A,C & E/LUTEIN/MINERALS TABLET PO SCH (09:24)
[2017-03-01] MEDS: ALLOPURINOL 300 MG TABLET PO SCH (09:24)
[2017-03-01] MEDS: LOSARTAN 25 MG TABLET PO SCH (09:24)
--- NOTE | 2017-03-01 09:51 | Discharge Summary ---
Medical - DS: Prov Patient information: Note initiated : 03/01/17 at 9:49 am Service Date, if different from initiated Date: [] Patient: Jay Allen 77 y/o M admitted on 02/24/17 for Shortness of Breath /CHF, Dyspnea, Hyperglycemia. Chief Complaint: [] Date of admission: 02/24/17 16:55 Discharge date: 03/01/17 Primary care physician: Curly Middleton Admitting clinician: Saskia Faulkner Consults: 02/24/17 15:14 Consult to Physician [CONS] Stat Comment: T8 Consulting Provider: Saskia Faulkner Reason For Exam: Physician to Consult Discharging clinician: Tom Ruiz Medical - DS: Meds - Discharge Medications Prescriptions: Nitrofurantoin Macrocrystal [Nitrofurantoin] 100 mg PO BID #10 cap oxyCODONE HCL [Roxicodone] 5 mg PO Q4HP PRN #30 tab PRN Reason: Pain Tamsulosin [Flomax] 0.4 mg PO BID #60 cap Warfarin Sodium [Jantoven] 7.5 mg PO DAILY #30 tab Active and Home Medications: Home Medications magnesium oxide 400 mg tablet 400 mg PO BID tab 10/21/14 [History Confirmed Last Taken Unknown] methotrexate sodium 2.5 mg tablet 15 mg PO MO@0900 tab 10/21/14 [History Confirmed 02/24/17 Last Taken Unknown] triamcinolone acetonide 0.5 % topical cream 1 applic TOPICAL BID g 10/21/14 [ History Confirmed 02/24/17 Last Taken Unknown] vitamin A-vitamin C-vit E-min tablet 1 tab-cap PO BID tab 10/21/14 [History Confirmed 02/24/17 Last Taken Unknown] allopurinol 300 mg tablet 300 mg PO QDAY #30 tab 02/18/16 [Rx Confirmed Last Taken Unknown] fenofibrate 160 mg tablet 160 mg PO QDAY #30 tab 02/18/16 [Rx Confirmed Last Taken Unknown] cholecalciferol (vitamin D3) 5,000 unit capsule 5,000 unit PO QDAY #100 cap 10/24 [Rx Confirmed 02/24/17 Last Taken Unknown] aspirin 81 mg tablet,delayed release 81 mg PO QDAY 09/17/16 [History Confirmed 02/24/17 Last Taken Unknown] nystatin 100,000 unit/gram topical powder 1 applic TOPICAL BID #60 each [Rx Confirmed 02/24/17 Last Taken Unknown] Alendronate Sodium [Fosamax] 70 mg PO SA@0700 02/24/17 [History Confirmed Last Taken Unknown] Atorvastatin [Lipitor] 10 mg PO HS 02/24/17 [History Confirmed 02/24/17 Last Taken Unknown] Budesonide [Pulmicort] 0.5 mg NEB Q12 02/24/17 [History Confirmed 02/24/17 Last Taken Unknown] Citalopram Hydrobromide [Celexa] 40 mg PO DAILY 02/24/17 [History Confirmed Last Taken Unknown] Digoxin [Digitek] 125 mcg PO DAILY@1400 02/24/17 [History Confirmed 02/24/17 Last Taken Unknown] Diltiazem [Cardizem] 60 mg PO BID 02/24/17 [History Confirmed 02/24/17 Last Taken Unknown] Furosemide [Lasix] 40 mg PO BIDD 02/24/17 [History Confirmed 02/24/17 Last Taken Unknown] Gabapentin [Neurontin] 400 mg PO TID 02/24/17 [History Confirmed 02/24/17 Last Taken Unknown] Hydrocortisone [Anusol-Hc] 30 gm TP BIDP PRN 02/24/17 [History Confirmed Last Taken Unknown] Ipratropium/Albuterol [Duoneb] 3 ml NEB Q4HWA 02/24/17 [History Confirmed Last Taken Unknown] Iron Ps Cmplx/Vit B12/FA [Poly-Iron 150 Forte Capsule] 1 each PO DAILY 02/24/17 [History Confirmed 02/24/17 Last Taken Unknown] Linaclotide [Linzess] 290 mcg PO ACB 02/24/17 [History Confirmed 02/24/17 Last Taken Unknown] Losartan [Cozaar] 25 mg PO DAILY 02/24/17 [History Confirmed 02/24/17 Last Taken Unknown] Melatonin 3 - 6 mg PO HSP PRN 02/24/17 [History Confirmed 02/24/17 Last Taken Unknown] Omeprazole [Prilosec] 20 mg PO ACB 02/24/17 [History Confirmed 02/24/17 Last Taken Unknown] Polyethylene Glycol 3350 [Miralax] 17 gm PO BID 02/24/17 [History Confirmed Last Taken Unknown] Tamsulosin HCl [Flomax] 0.4 mg PO HS 02/24/17 [History Confirmed 02/24/17 Last Taken Unknown] Warfarin [Coumadin] 5 mg PO SUTUTHFRSA@1400 02/24/17 [History Confirmed Last Taken Unknown] Warfarin [Coumadin] 10 mg PO MOWE@1400 02/24/17 [History Confirmed 02/24/17 Last Taken Unknown] oxyCODONE HCL [Roxicodone] 5 mg PO Q4HP PRN 02/24/17 [History Confirmed Last Taken Unknown] Medical - DS: Hosp Hospital course: Mr. Allen is a 77-year-old male with multiple medical problems including sometimes difficult to control type 2 diabetes mellitus, recent chronic hypoxic respiratory failure on oxygen, rate controlled atrial fibrillation, diastolic congestive heart failure, coronary artery disease and chronic kidney disease who presented [place] the ER from [place] with dyspnea and hypoxia. Patient states he has been short of breath for "a while". The emergency department received a history of dyspnea for the last 3 weeks. His states that he's been short of breath and on oxygen constantly since he had pneumonia back in December. He was seen in this emergency department, diagnosed with sepsis from pneumonia and transferred to [facility]. He was apparently readmitted at [facility] since then. He's been on oxygen at [facility], where he's currently living since he's been hospitalized. He is brought to the emergency department today because he was having progressive dyspnea as well as oxygen saturations in the 70's recorded at [facility] while he was on his usual oxygen. Associated with his dyspnea, the patient's noted worsening lower extremity edema. His weight was 270, and spent 250-260 in the past. In the emergency department evaluation revealed elevated BNP at 1395, mild congestive heart failure on radiograph. On my exam he has bilateral rales plus lower extremity edema consistent with CHF. His been admitted for treatment of acute on chronic diastolic congestive heart failure. He also had abnl UA on presentation. Congestive Heart failuire: Treated with IV lasix with good response, he is total of -6075ml todate, He was switched to oral lasix with good ongoing response. The also has a UTI which may have been the underlying inciting factor , but the patient is also known not to be compliant with his dietary restrictions. He will be discharged back on oral lasix but with low salt diet and fluid restriction to 1500ml/ 24 hrs. The patient is back tbaseline oxygen needs of 2L /min, repeat CXR showed resolution of chf, no pna He had an echocardiogram done at [facility] in December, by report shows an EF of 65%, but has grade 3 diastolic dysfunction, moderate to severe and pulm htn with pa pressure of 52. Troponin leak: Noted Troponin max was 0.09, and trended down, no chest pains, no ekg c hanges, likely related to chf and ckd. UTI Abnl UA noted, urine culture positive for UTI, enterococcus sensitive to nitrofurantoin, treated with vanco while in the hospital will give another 5 days of nitrofurantoin on discharge. BPH and Urinary retention has been an issue while in the hospital, not sure if retention was exacerbated by his UTI, none the less he is on bid flomax now, and he needs to follow up with urology at discharge. He will be discharged with a farah with voiding trial in 2 weeks. Diabetes with Hyperglycemia: Patient has difficulty in controlling diet and with infection and CHF his glucose was very high. He takes lantus 40 units bid at home which seems to be working well for him. Will send to [place] on lantus 40 bid and med dose sliding scale humalog afib, The patient has h/o afib, and is on coumadin. his INR on discharge is 1.8 , he will need INR check in 3 days, His present dose of coumadin is 7.5mg once daily. THe patient during this visit did seem to struggle with short term memory, and his family notes this has been going on for a while. Outpatient follow up with PCP and if needed dementia workup could be useful. The rest of the stay in the hospital was uneventful. NO changes to his home med list done except use of nitrofurantoin for 5 days and change in coumadin dose to 7.5mg. Lantus 40 bid and sliding scale. Pt on the day of discharge was lying comfortably in bed, tolerating po diet well , had no complaints and was on baseline oxygen needs. Discharge diagnosis: chf exacerbation, Uncontrolled DM, UTI. - Time Spent with Patient Total time spent providing and/or coordinating discharge services: Greater than 30 minutes Medical - DS: Exam - Constitutional Vitals: Vital Signs Temp Pulse Pulse Resp BP BP Pulse Ox 03/01/17 07:00 72 16 90 03/01/17 06:25 98.9 F 24 H 122/60 94 03/01/17 03:30 98.3 F 75 24 H 106/44 93 02/28/17 23:40 99.6 F H 78 28 H 122/55 94 02/28/17 19:10 98.8 F 74 28 H 128/65 95 02/28/17 18:20 94 02/28/17 15:18 98.5 F 83 24 H 106/57 95 02/28/17 13:52 80 18 02/28/17 12:20 97.9 F 80 24 H 116/64 93 02/28/17 10:54 93 Intake and Output 02/28/17 03/01/17 03/01/17 21:59 05:59 13:59 Intake Total 340 / 340 170 / 170 Output Total 775 / 775 950 / 950 575 / 575 Balance -435 / -435 -780 / -780 -575 / -575 Intake: Oral 340 / 340 170 / 170 Output: Urine Catheter Amount 475 / 475 950 / 950 575 / 575 Void Amount 300 / 300 Other: Meal Dinner Percent of Meal Consumed 100% # Voids 2 Weight 264 lb Additional comments: Constitutional; Afebrile, cooperative, alert, not in distress. Eyes- No icterus, , No periorbital swelling Ears- Ext ear normal, hearing normal to conversation. Neck- Midline trachea, supple Respiratory system: Air Entry equal on both sides, No crackles or wheezing, no rhonchi. CVS- Rate rhythm irregular, S1,S2 heard, no gallop, no rub. Abdomen- Soft nontender abdomen, no organomegaly, no tenderness, no guarding or rigidity, large pannus [employer]- AOOx1, moving all extremities, no gross focal deficit noted. Medical - DS: Data Procedures and tests throughout hospitalization: XRray chest IMPRESSION: Mild CHF. second x ray IMPRESSION: Resolution in CHF since yesterday Labs on day of discharge: Labs from last 24 hours 03/01/17 03/01/17 03/01/17 04:05 04:05 04:05 WBC 8.8 RBC 3.87 L Hgb 12.7 L Hct 38.5 L MCV 99.4 MCH 32.8 MCHC 33.0 RDW 17.0 H Plt Count 195 MPV 10.0 Gran % 72.9 Lymph % (Auto) 14.[address] [place] % (Auto) 7.0 Eos % (Auto) 4.9 Baso % (Auto) 0.3 Gran # 6.4 Lymph # (Auto) 1.[address] [place] # (Auto) 0.6 Eos # (Auto) 0.4 Baso # (Auto) 0 PT 21.4 H INR 1.8 H Sodium 139 Potassium 4.6 Chloride 97 Carbon Dioxide 32 H Anion Gap 10.0 BUN 31 H Creatinine 1.3 H GFR Calculation 52 Glucose 120 H Uric Acid 5.6 Calcium 8.9 Phosphorus 2.7 Magnesium 2.2 Total Bilirubin 0.5 Direct Bilirubin < 0.2 GGT 20 AST 20 ALT 13 Alkaline Phosphatase 30 L Lactate Dehydrogenase 208 Total Protein 6.5 Albumin 3.2 Globulin 3.3 Albumin/Globulin Ratio 1.0 Triglycerides 137 Preliminary micro results at discharge 02/24/17 15:23 Blood Culture - Preliminary Blood 02/24/17 14:49 Blood Culture - Preliminary Blood Medical - DS: A/P - Patient/Caregiver Discharge Instructions Activity: as per physical therapy, increase activity as tolerated, wear oxygen at all times Diet: Low Sodium (2gm), Cardiac (Fluid restriction to 1500ml in 24 hrs), Consistent Carbohydrate Additional Instructions: You were admitted to the hospital with CHF exacerbation Take medications as prescribed Be complaint with dietary restrictions You need to be compliant with regards to 1500ml fluid restrictions You have UTI and need antibiotics x 5 days. You were unable to pass urine during the hospital stay, you need to follow up with your urologist for further evaluation. You have been placed on medications (flomax) to help you pass urine, Please leave the catheter in till seen by your urologist. I would advise a follow up within 1-2 weeks Follow up with your pcp in 1 week. go to the ER if any worsening of condition, - Follow up Plan Follow up with: Curly Middleton MD [Primary Care Provider] - Disposition: [facility] SNF Prognosis: Fair Rehab Potential: Fair I certify that the patient requires SNF services: Yes Overall status at discharge: patient is progressing back to baseline Medical - DS: Qual - VTE Deep Vein Thrombosis/Pulmonary Embolism Present on Admission: No
== END 2017-03-01 11:05 | DRG 291 ==
LOC: ED 13:31 → ICU 16:55 → MEDSUR 02-27 13:50
PROVIDERS: ADMIT Internal Medicine; ATTEND Internal Medicine